=== PATIENT | male | born 1955 | race Caucasian/White ===

== ENCOUNTER 2024-07-11 14:43 | Inpatient (IN) | payer MEDICARE, OTHER, SELFPAY ==
[2024-07-11] VITALS (74 sets, daily range): BP systolic 77–203; BP diastolic 40–182; BMI 32.2; BMI 33.1
[2024-07-11 12:10] LABS: Glucose - Point of Care 366 mg/dl (70-99)
--- NOTE | 2024-07-11 12:40 | PHANOTE ---
Addendum entered by Alanis Saxena 07/11/24 14:01:
family in room, went to car to get medication list. unable to get ahold of patient family or cardiology office
Addendum entered by Alanis Saxena 07/11/24 14:00:
called patient physician group at [phone] but no answer
Original Note:
med rec padmini- patient has no ecw and no family a this time
[2024-07-11] MEDS: NSS 1000 IV ×2 (12:41→16:58)
[2024-07-11 12:56] LABS: HCO3 19.3 mmol/L (21-28); PCO2 45 mmHg (35-48); PO2 237 mmHg (83-108); pH 7.24 (7.35-7.45)
[2024-07-11] MEDS: ATIVAN 2 MG IV (13:10)
[2024-07-11 13:13] LABS: Hematocrit 45.2 % (39.0-52.0); Mean Corpuscular Hgb 28.9 pg (27.0-31.0); Mean Corpuscular Volume 93.2 fL (80.0-94.0); Mean Platelet Volume 10.2 fL (7.4-10.4); Platelet Count 284 10^3/uL (130-400); Red Blood Cell Count 4.85 10^6/uL (4.70-6.10); Red Cell Dist. Width 12.6 % (11.5-14.5); White Blood Cell Count 12.4 10^3/uL (4.8-10.8)
[2024-07-11 13:15] LABS: INR 1.14
[2024-07-11 13:16] LABS: APTT 31.1 Sec (23.4-35.0)
[2024-07-11 13:21] LABS: ALT (SGPT) 170 U/L (0-50); AST (SGOT) 181 U/L (17-59); Albumin 3.7 g/dl (3.5-5.0); Alkaline Phosphatase 79 U/L (38-126); Blood Urea Nitrogen 18 mg/dl (9-20); Calcium 8.3 mg/dl (8.4-10.2); Carbon Dioxide 18 mmol/L (22-30); Chloride 102 mmol/L (98-107); Glucose 317 mg/dl (70-99); Potassium 4.7 mmol/L (3.5-5.1); Sodium 137 mmol/L (135-145); Total Bilirubin 0.8 mg/dl (0.2-1.3); Total Protein 6.2 g/dl (6.3-8.2); Triglycerides 150 mg/dl (10-149); eGFR > 60.00
[2024-07-11 13:33] LABS: Troponin I 0.083 ng/ml
--- NOTE | 2024-07-11 13:38 | ED.GENMED ---
History of Present Illness
General
Chief Complaint: CODE
Source: family and ambulance crew
Exam Limitations: clinical condition
Nursing documentation reviewed up to this point in time: agreed with
History of Present Illness
History of Present Illness:
69-year-old male with a reported history of CAD status post stents and CHF with reduced ejection fraction of 25% who presents to the emergency room via EMS status post a cardiac arrest. Patient cannot meaningfully participate in history due to his
clinical condition. History was obtained from EMS initially then from his girlfriend/common-law , sister and his employer subsequently. According to EMS they were called for a cardiac arrest. On their arrival he was found down on a job site
and coworkers were doing CPR and had an AED in place. He apparently was shocked twice by the AED prior to EMS arrival. On their arrival he was still pulseless and EMS initiated ACLS protocols and gave him a dose of epi. Narrow complex PEA was
initial rhythm for EMS. After about 15 minutes of EMS CPR ROSC obtained. He had no shockable rhythm for EMS. He was transported to the hospital. There was a question of a fall associated with his rest�patient was apparently nearby a 2 to 3 foot
ladder but is unclear whether he fell off of the ladder.
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 His coworkers apparently witnessed him collapse and started CPR and AED and called EMS. According to his girlfriend
he has history of CAD and CHF with reduced EF. He is on multiple medications including Farxiga, Entresto, Coreg, Lasix. He follows with cardiology through [facility].
Past History
Past History
ED Past Medical History: None
ED Past Surgical History: None
Social History
Tobacco: Other (occasional cigar)
Alcohol: Occasional
Personal: Single
Living: with roommate
Employment: Employed
Review of Systems
Review of Systems
Unable to obtain full review of systems at this time due to: due to acuity
All Other Systems: Not applicable
Phy Exam
Physical Exam
Physical Exam:
General: Unconscious, spontaneously breathing
Head: Normocephalic, atraumatic
Eyes: Conjunctiva injected
Throat: LMA in place on arrival; intubated shortly after arrival
Neck: Cervical collar applied
Lungs: Bilateral breath sounds present with no focal rales appreciated
Heart: Heart rate in the 80s, pulses present throughout; no chest wall bruising or instability, no crepitus
Abd: Soft, non distended, no bruising
Back: No spinal step-offs or signs of trauma the back or flank
Neuro: No spontaneous movement but he is having spontaneous breaths; his pupils are fixed and dilated; rectal tone intact
Skin: Somewhat cool to the touch
Extremities: Atraumatic, no edema in extremities, equal pulses in all extremities
Scores
Heart Failure Risk
Heart Failure Risk Score: Not Applicable
Heart Score for Chest Pain Patients
STEMI patient?: Not applicable
Withdrawal Assessment of Alcohol
Withdrawal Assessment Completed?: Not applicable
Course
Orders/Labs/Results
Orders:
Orders
07/11/24 11:52
Portable Chest Xray [CR Chest Portable - 1 View] Urgent
Comment:
Reason For Exam: code
Reason Study Needs to be Portable: Patient Unstable
07/11/24 11:54
Electrocardiogram (*1) Urgent
Reason for Study: Chest Pain
EKG- Treatment ONCE
07/11/24 11:55
CT Cervical Spine W/ Iv Contra Urgent
Comment:
Reason For Exam: CODE
CT Head W/o Iv Contrast Urgent
Comment:
Reason For Exam: code
07/11/24 11:56
CT Chest/abd/pel W Iv Cont Urgent
Comment:
Reason For Exam: code
07/11/24 11:59
Type And Crossmatch [Type+Screen] Urgent
Alcohol Urgent
CBC/With Diff [Complete Blood Count/With Diff] Urgent
CMP [Comprehensive Metabolic Panel] Urgent
PTT Urgent
Prothrombin Time Urgent
Triglycerides Routine
Comment: baseline levels with propofol infusion
Troponin I Urgent
07/11/24 12:24
CT Cervical Spine W/o Iv Contr Urgent
Comment:
Reason For Exam: fall, cardiac arrest
07/11/24 12:25
0.9% Sodium Chloride 1000 ml [Nss] 1,000 ml IV BOLUS
Propofol 1,000,000 Mcg/100 ml [Diprivan] 1,000,000 mcg in 100 ml IV NOW
07/11/24 12:46
ABG [Arterial Blood Gas] Urgent
%Oxygen/Room Air: 100
Urinalysis Reflex To Culture Urgent
Date Specimen was Collected: 07/11/24
Time Specimen was Collected: 12:02
Urine Drug Abuse Screen Urgent
Date Specimen was Collected: 07/11/24
Time Specimen was Collected: 12:02
07/11/24 12:58
Electrocardiogram (*1) Urgent
Reason for Study: Abnormal EKG
EKG- Treatment ONCE
07/11/24 13:07
Lorazepam [Ativan] 2 mg .ROUTE .STK-MED ONE
07/11/24 13:09
Lorazepam [Ativan] 2 mg IV NOW STA
07/11/24 13:24
ABO2 Urgent
ZuldiK Wristband Number:
Associate notified that ABO2 has been ordered: [id number]
Date: 07/11/24
Time: 13:05
Pin Ticket Machine Operator ID: [id number]
07/11/24 13:38
Acetone [B-Hydroxybutyrate] Urgent
07/11/24 13:45
CARDIOLOGY CONSULT Stat
Consulting Provider: Vincent العراقي
Was physician already notified: Yes
07/11/24 13:46
Analytical Technician Consult Stat
Consulting Provider: Giselle,Luisa Mcintyre
Was physician already notified: Yes
Reason for consult: cardiac arrest
Abnormal Lab Results
07/11/24 07/11/24
11:59 12:46
WBC 12.4 H 10^3/uL
(4.8-10.8)
MCHC 31.0 L g/dL
(33.0-37.0)
PT 15.0 H Sec
(11.4-14.6)
pH 7.24 L
(7.35-7.45)
pO2 237 H mmHg
(83-108)
HCO3 19.3 L mmol/L
(21-28)
ABG O2 Sat (Measured) 100.0 H %
(94-98)
Carbon Dioxide 18 L mmol/L
(22-30)
Glucose 317 H mg/dl
(70-99)
Calcium 8.3 L mg/dl
(8.4-10.2)
AST 181 H U/L
(-59)
ALT 170 H U/L
(0-50)
Troponin I 0.083 H* ng/ml
Total Protein 6.2 L g/dl
(6.3-8.2)
Triglycerides 150 H mg/dl
(10-149)
POC Glucose 366 H mg/dl
(70-99)
07/11/24 11:59
07/11/24 11:59
Vital Signs
Initial and Last Documented VS:
Initial Vital Signs
Pulse Resp BP
90 18 133/84
07/11/24 11:57 07/11/24 11:57 07/11/24 11:57
Last Documented Vital Signs
Pulse Resp BP
97 17 126/64
07/11/24 13:10 07/11/24 13:10 07/11/24 13:10
Procedures
Intubations
Procedure completed by: Enrique Orellana MD
Method of Intubation: glidescope
Tube size (cm): 7.5
Placement confirmed by: placement corrected
Breath sounds after intubation: equal
Intubation complications: no complications
Central Line
Left Femoral:
Indication for procedure:: cardiac arrest, cooling
Procedure completed by: Enrique Orellana MD
If no, reason: Emergency procedure
Central line lumen: triple
Number of attempts: 1
Central line complications: none
Sterile dressing applied?: Yes
MDM/Problems Addressed
Differential Diagnosis Includes:
Differential diagnosis is wide and includes: Traumatic mechanism for arrest such as brain bleed, pneumothorax/hemothorax, intra-abdominal bleed, spinal cord injury //more likely suspect that this is cardiac arrest related to arrhythmia versus acute
CO; PE less likely as oxygenation has been acceptable and heart rate normal, must consider electrolyte derangements as well given he is on Lasix
MDM/Problems Addressed:
69-year-old male presents after sudden witnessed cardiac arrest; had CPR by bystanders immediately and then about 15 minutes of EMS CPR before ROSC. Was shocked twice by ED but not by medics. Here he is normotensive with heart rate in the 80s.
Rest of vitals and exam as above. Cervical collar applied on arrival. He was intubated shortly after arrival. Bilateral large-bore IVs placed. Labs including a CBC and a CMP, coags, type and screen, troponin, urinalysis, UDS and alcohol level
sent. EKG shows left bundle branch block unclear chronicity. No STEMI. Chest x-ray after intubation shows low-lying ET tube which was retracted after my initial review. Will send for a CT of the head, cervical spine, chest/abdomen/pelvis.
Provide fluids.
Patient biting ET tube will start propofol infusion.
CT of the head, cervical spine, chest/abdomen/pelvis shows minor nondisplaced sternal fracture likely from CPR but no other acute posttraumatic injuries or other acute pathology. His initial labs showed slight leukocytosis to 12.4. pH 7.24. CMP
shows metabolic acidosis anion gap 17 with hyperglycemia of 317�lower suspicion at this is DKA suspect much more likely that this is a postarrest lactic acidosis. Lactate and blood culture sent. His troponin was elevated but marginal at 0.083�will
need to trend. LFTs elevated likely in the setting of postarrest. Working diagnosis is arrhythmia genic arrest versus acute CO. Discussed with ICU will proceed with cooling�a central line was placed by me. Discussed with hospitalist to
facilitate admission.
Chronic conditions affecting care:
CAD, CHF
*Radiology
Radiology exam reviewed: preliminary read by ED provider and radiology read reviewed
*Pulse Oximetry
Patient hypoxic: no
*EKG
Interpreted by ED Provider?: Yes
Heart Rate: 89
Rate: normal
Rhythm: sinus and PVC's
[place]: normal axis
QRS Pattern: left bundle branch block
Ischemia: non-specific ST changes
*Critical Care Note
Total Time (30-74mins, 75-104mins- exclusive of procedures): 44
comment:
Critical care statement: A total of 44 minutes of critical care time was provided for this patient. This includes management of unstable vital signs, evaluation of the patient at bedside, frequent reassessment, discussion with
consultants/hospitalist, and review of pertinent medical records. This time was separate from time utilized to perform any aforementioned documented procedures
Data Reviewed
Source: records, family and ambulance crew
Patient Management
Discussion with other providers: Hospitalist (Discussed with hospitalist) and Atomic Process Engineer (Discussed with energy efficiency finance manager)
Escalation/DeEscalation of care consider admission/obs:
Admission indicated
ED Attending Note
-
Portions of this chart may have been created with voice recognition software.� Occasional wrong word or��sound alike� substitutions may have occurred due to the inherent limitations of voice recognition software.
Discharge Plan
Departure
Patient Disposition: Admit
Date of Disposition: 07/11/24
Time of Disposition: 13:37
Admit to doctor: Ector
Presentation/result/management discussed w/ accepting MD/DO: Hospitalist
Discharge Problem:
Cardiac arrest
Prescriptions:
No Action
furosemide [Lasix] 40 mg Tablet
40 mg PO DAILY
atorvastatin [Lipitor] 80 mg Tablet
80 mg PO DAILY
spironolactone 25 mg Tablet
12.5 mg PO DAILY
carvedilol [Coreg] 3.125 mg Tablet
3.125 mg PO BID
prasugrel HCl 10 mg Tablet
10 mg PO DAILY
dapagliflozin propanediol [Farxiga] 5 mg Tablet
5 mg PO DAILY
sacubitril-valsartan [Entresto] 24-26 mg Tablet
1 tab PO BID
Referrals:
UNKNOWN - PT NOT,INTERVIEWE [Family Provider] -
Interventions
Interventions:
*Risk Screen - Suicide Last Done: 07/11/24 11:57
*General Assessment Last Done: 07/11/24 11:57
*Neglect/Abuse Screening Last Done: 07/11/24 11:57
ED- Cardiac Assessment Last Done: 07/11/24 12:03
ED- Pulmonary Assessment Last Done: 07/11/24 12:03
Discharge Date and Time
Print Language: DANISH
[2024-07-11 13:44] LABS: Alcohol None Detected
[2024-07-11 13:47] LABS: Amphetamines Negative (Negative); Barbiturates Negative (Negative); Benzodiazepines Negative (Negative); Buprenorphine Negative (Negative); Cocaine Negative (Negative); Marijuana Negative (Negative); Methadone Negative (Negative); Methamphetamines Negative (Negative); Opiates Negative (Negative); Phencyclidine Negative (Negative); Tricyclic Antidepressants Negative (Negative)
--- NOTE | 2024-07-11 13:58 | W.PN.UPDATE ---
Update Note
Progress Note Update
I personally performed a history and physical exam of the patient and discussed management with the resident. I reviewed the resident's note and agree with the documented findings and plan of care HPI/CC.
69-year-old male presents after cardiac arrest. As per discussion with the ER the patient collapsed at his work. CPR was started immediately by coworkers. An AED was placed and he received 2 shocks. He received 1 round of CPR and epinephrine by
EMS and ROSC was obtained. Currently intubated.
Gen: NAD, well developed/nourished
Neck: C-collar in place
CV: RRR, +S1/S2, no m/r/g.
Resp: CTAB, no rales, wheezes, or rhonchi.
Abd: +BS, soft, NT, ND
Skin: No rashes.
Neuro: sedated
Psych: sedated
Lab Results
07/11/24 07/11/24
11:59 12:46
WBC 12.4 H
RBC 4.85
Hgb 14.0
Hct 45.2
MCV 93.2
MCH 28.9
MCHC 31.0 L
RDW 12.6
Plt Count 284
MPV 10.2
PT 15.0 H
INR 1.14
APTT 31.1
pH 7.24 L
pCO2 45
pO2 237 H
HCO3 19.3 L
Base Excess -8.0
ABG O2 Sat (Measured) 100.0 H
O2 Delivery Level
Sodium 137
Potassium 4.7
Chloride 102
Carbon Dioxide 18 L
BUN 18
Creatinine 1.1
eGFR > 60.00
Glucose 317 H
Calcium 8.3 L
Total Bilirubin 0.8
AST 181 H
ALT 170 H
Alkaline Phosphatase 79
Troponin I 0.083 H*
Total Protein 6.2 L
Albumin 3.7
Triglycerides 150 H
Urine Opiates Screen Negative
Ur Buprenorphine Negative
Ur Oxycodone Screen Negative
Urine Methadone Screen Negative
Ur Barbiturates Screen Negative
Ur Tricyclics Screen Negative
Ur Phencyclidine Scrn Negative
Ur Amphetamines Screen Negative
U Methamphetamines Scrn Negative
U Benzodiazepines Scrn Negative
Urine Cocaine Screen Negative
U Marijuana (THC) Screen Negative
Alcohol, Quantitative None detected
POC Glucose 366 H
CXR: No acute cardiopulmonary process. Low-lying ET tube. This was already retracted by the time of subsequent CT.
CT Brain/C-spine: No acute intracranial abnormality noted. No acute fracture or subluxation of the cervical spine.
CT C/A/P: No significant abnormality identified in the chest, abdomen or pelvis aside from a tiny nondisplaced fracture of the upper sternal body anteriorly. 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
cm. Possible left thyroid nodule. Consider outpatient workup with dedicated thyroid ultrasound if not previously performed.
ECG (read by me): SR @ 90, L-axis, LBBB
Cardiac arrest:
-Likely due to arrhythmogenic event due to underlying chronic HFrEF and CAD (h/o stents)
-trend trop, initial 0.083
-check echo (prior EF 25%, no ICD)
-post-cardiac arrest cooling protocol
-STAT cards/propagation worker c/s placed
-obtain records from [facility]
-will likely need [facility]
-GDMT: resume Coreg/Farxiga/Entresto/Aldactone once pt has enteral access
Total critical care time spent = 42 min
[2024-07-11 14:02] LABS: % Basophils 0.6 % (0-2); % Eosinophils 1.1 % (0-6); % Immature Granulocytes 5.4 % (0-0.5); % Lymphocytes 27.5 % (20.5-51.1); % Monocytes 4.3 % (1.7-9.3); % Neutrophils 61.1 % (42.2-75.2); Absolute Basophils 0.1 10^3/uL (0-0.2); Absolute Eosinophils 0.1 10^3/uL (0-0.7); Absolute Immature Granulocytes 0.7 10^3/uL (0-0.05); Absolute Lymphocytes 3.4 10^3/uL (1.2-3.4); Absolute Monocytes 0.5 10^3/uL (0.1-0.6); Absolute Neutrophils 7.6 10^3/uL (1.4-6.5); Nucleated Red Blood Cells % 0 % (-)
[2024-07-11 14:16] LABS: Urine Albumin 3+ (Neg - Trace); Urine Bilirubin Negative (Negative); Urine Character Slightly Cloudy (Clear); Urine Color Yellow; Urine Glucose 4+ (Negative); Urine Ketone Negative (Negative); Urine Leukocyte Negative (Negative); Urine Nitrite Negative (Negative); Urine Occult Blood 4+ (Negative); Urine Urobilinogen Negative (Neg - 1+)
[2024-07-11 14:26] LABS: Urine Granular Cast 0-2 /LPF (0)
[2024-07-11 14:28] LABS: Urine Bacteria Moderate (Negative); Urine Red Blood Cell 16-20 /HPF (0-2)
--- NOTE | 2024-07-11 14:46 | HPS.HSE ---
Family Physician
-
Family Physician: Jean Claude Madrigal DO
Chief Complaint
-
Cardiac arrest
History of Present Illness
69-year-old male with history of CAD status post stents in February 2023, CHF with reduced ejection fraction of 25% was brought in by EMS status postcardiac arrest. 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
started CPR, receiving 2 shocks from AED device prior to EMS arrival. EMS arrived and began 15 minutes of ACLS protocol, he was given epi, and had narrow complex PEA with subsequent ROSC. No shockable rhythm per EMS.
Per patient's partner, patient's had no improvement in ejection fraction after GDMT. Implanted defibrillator was recommended by his tapeman but patient declined at the time. He has been making food and lifestyle changes.
Medical History
Past Medical History
Past Medical History: Reports CAD and CHF (HFrEF 25%)
Past Surgical History: Reports Appendectomy and Other (Inguinal hernia repair, left clavicle ORIF, left index finger tendon repair)
Social History
Unable to obtain full social history at this time due to: Patient Intubation
Tobacco: Smoker (Occasional)
Alcohol: Occasional
Personal: Single (Has common-law )
Living: With Family
Employment: Employed
Family History
Family History: Not pertinent
Allergies / Home Medications
Allergies reflects when Allergies were last updated in [employer].
Home Medications with original date entered in [employer]
Allergy/Medication List:
Allergies
Allergy/AdvReac Type Severity Reaction Status Date / Time
No Known Allergies Allergy Verified 12/01/19 11:09
Home Medications
aspirin 81 mg chewable tablet 81 mg PO DAILY 07/11/24
atorvastatin 80 mg tablet (Lipitor) 80 mg PO QPM 07/11/24
carvedilol 3.125 mg tablet (Coreg) 3.125 mg PO BID 07/11/24
dapagliflozin propanediol 5 mg tablet (Farxiga) 5 mg PO QPM 07/11/24
furosemide 40 mg tablet (Lasix) 40 mg PO DAILY 07/11/24
prasugrel HCl 10 mg tablet 10 mg PO DAILY 07/11/24
sacubitril 24 mg-valsartan 26 mg tablet (Entresto) 1 tab PO BID 07/11/24
spironolactone 25 mg tablet 12.5 mg PO DAILY 07/11/24
Review of Systems
-
Unable to obtain full review of systems at this time due to: Acuity
Physical Exam
Vital Signs
Vital Signs
Pulse Resp BP
82 25 142/83
07/11/24 14:30 07/11/24 14:30 07/11/24 14:25
Physical Exam
General: Well Nourished and Intubated
HEENT: NormoCephalic and Atraumatic
Respiratory: Clear; No Wheezes, Rales, Rhonchi or Crackles
Cardiac: S1/S2 and Regular Rhythm; No Murmur, Rub, Gallop or Peripheral Edema
GI: Soft, Non Distended and Normal Bowel Sounds
Skin: Warm and Dry
Neuro: Sedated
Laboratory Results
-
07/11/24 11:59
07/11/24 11:59
Laboratory Results
PT 15.0 Sec (11.4-14.6) H 07/11/24 11:59
INR 1.14 07/11/24 11:59
APTT 31.1 Sec (23.4-35.0) 07/11/24 11:59
pH 7.24 (7.35-7.45) L 07/11/24 12:46
pCO2 45 mmHg (35-48) 07/11/24 12:46
pO2 237 mmHg (83-108) H 07/11/24 12:46
HCO3 19.3 mmol/L (21-28) L 07/11/24 12:46
Total Bilirubin 0.8 mg/dl (0.2-1.3) 07/11/24 11:59
AST 181 U/L (17-59) H 07/11/24 11:59
ALT 170 U/L (0-50) H 07/11/24 11:59
Alkaline Phosphatase 79 U/L (38-126) 07/11/24 11:59
Troponin I 0.083 ng/ml H* 07/11/24 11:59
Impression/Plan
-
IMPRESSION: 69-year-old male with history of CAD status post stents February 2023, HFrEF EF 25%, who presents with cardiac arrest
PLAN:
Cardiac arrest:
-Likely due to arrhythmogenic event due to underlying chronic HFrEF and CAD (h/o stents Feb 2023)
-CT chest/abd/pelvis no acute significant abnormality
-CT head and c-spine - no acute abnormality
-Admit to ICU
-trend trop, initial 0.083
-check echo (prior EF 25%, no ICD - pt declined at the time)
-post-cardiac arrest cooling protocol
-STAT cards/caravan park and camping ground manager c/s placed
-obtain records from [facility]
-will likely need [facility]
HFrEF:
-GDMT: resume Coreg/Farxiga/Entresto/Aldactone once pt has enteral access
Incidental findings on CT:
-Possible left thyroid nodule. Consider outpt workup after acute problems addressed
-Mild fusiform aneurysmal dilatation of the ascending thoracic aorta measuring up to 4.2 cm. Vascular assessment after acute problems/outpt
Code Status: DNR
POA: Madhavi Zamora (common law ) [phone]
--- NOTE | 2024-07-11 14:53 | CON.CAR ---
Addendum entered and electronically signed by Vincent العراقي MD 07/11/24 15:28:
I saw and examined the patient.
The STATE PATROL OFFICER's note was reviewed and I agree with the note.
Comment: 69 year old male (known to his proof inspector at [facility]) with coronary artery disease (most recent PCI 02/2023), HFrEF (EF 25%, presumed ischemic cardiomyopathy), LBBB, hypertension, and dyslipidemia, presented to the emergency room
status postcardiac arrest.
- supportive care for now
- echo pending
- heart cath and possible defibrillator later this hospitalization
Original Note:
Consultation
Consultation Request
Date/Time Consultation Requested: 07/11/2024 13:45
Date/Time Consultation Performed: 07/11/2024 14:00
Requesting Provider: Dr. Garcia
Performing Provider: BLANCA Gomez for Dr. العراقي
Reason for Consultation: Cardiac arrest
Medical History
-
Chief Complaint: Cardiac arrest
History of Present Illness:
Aj Shelton is a 69 year old male (known to his proof inspector at [facility]) with coronary artery disease (most recent PCI 02/2023), HFrEF (EF 25%, presumed ischemic cardiomyopathy), LBBB, hypertension, and dyslipidemia, presented to the emergency
room status postcardiac arrest. He was found down on a job site. Coworker started doing CPR. He was shocked twice by the AED prior to EMS arrival. When EMS arrived, he was pulseless with narrow complex PEA. ACLS protocol initiated. Epinephrine
was given. ROSC obtained after 15 minutes of high-quality CPR. There is a question of a fall associated. There was a 3 foot ladder nearby. Cardiology was STAT consulted for concerns regarding arrhythmia. Telemetry stable. Mr. Shelton is intubated
on mechanical ventilation. The plan of care was discussed with his girlfriend at the bedside. Per his girlfriend, he was his usual state of health this morning. He was even discussing going to the gym to workout. Yesterday, he complained of
joint pain and took Tylenol arthritis.
Past Medical History
Past Medical History: CAD, CHF, HTN, Hypercholesterolemia and Other (LBBB)
Past Surgical History: Orthopedic
Social History
Tobacco: Non-Smoker
Alcohol: Occasional
Drug: None
Personal: Single (Girlfriend)
Living: With Family
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
Family History
Family History: Reviewed & Not Pertinent (GF denies known early CAD and SCD.)
Allergies / Home Medications
Allergy/AdvReac Type Severity Reaction Status Date / Time
No Known Allergies Allergy Verified 12/01/19 11:09
�Medication �Instructions �Recorded �Confirmed �Type
aspirin 81 mg chewable tablet 81 mg PO DAILY 07/11/24 07/11/24 History
atorvastatin 80 mg tablet (Lipitor) 80 mg PO QPM 07/11/24 07/11/24 History
carvedilol 3.125 mg tablet (Coreg) 3.125 mg PO BID 07/11/24 07/11/24 History
dapagliflozin propanediol 5 mg 5 mg PO QPM 07/11/24 07/11/24 History
tablet (Farxiga)
furosemide 40 mg tablet (Lasix) 40 mg PO DAILY 07/11/24 07/11/24 History
prasugrel HCl 10 mg tablet 10 mg PO DAILY 07/11/24 07/11/24 History
sacubitril 24 mg-valsartan 26 mg 1 tab PO BID 07/11/24 07/11/24 History
tablet (Entresto)
spironolactone 25 mg tablet 12.5 mg PO DAILY 07/11/24 07/11/24 History
Review of Systems
-
Unable to obtain full review of systems at this time due to: Patient Intubation
Physical Exam
Vital Signs
Pulse Resp BP
82 25 142/83
07/11/24 14:30 07/11/24 14:30 07/11/24 14:25
Lab Results
07/11/24 11:59
07/11/24 11:59
Troponin I 0.083 ng/ml H* 07/11/24 11:59
Physical Exam
General: Well Developed, Well Nourished and Intubated
HEENT: Normocephalic, Anicteric, Moist Mucous Membranes and Other (C collar)
Respiratory: Clear
Cardiac: S1/S2 and Regular Rhythm; Negative Peripheral Edema
Breast: Deferred by me
GI: Soft, Non Tender, Non Distended and Normal Bowel Sounds
Rectal: Deferred by Provider
Genito-urinary: No Costovertebral Tender
Musculoskeletal: No Clubbing, No Cyanosis and No Edema
Skin: Warm and Dry
Neuro: AO x 3
Hematologic/Lymphatic: No Lymphadenopathy
Psych: Calm
Impression / Plan
-
IMPRESSION/PLAN: 69M with coronary artery disease (most recent PCI 02/2023), HFrEF (EF 25%, presumed ischemic cardiomyopathy), LBBB, hypertension, dyslipidemia, and [id number] diabetes mellitus presented to the emergency room status
postcardiac arrest.
Primary proof inspector: [facility]
Cardiac arrest
-Cause currently unknown, critically ill - intubated and sedated
-Cooling per Buzzle Buffer
-Follow telemetry
-He declined ICD in the outpatient setting twice per girlfriend
-[facility] this admission
-Obtain TTE
Abnormal troponin, type unknown, likely nonischemic myocardial injury in the setting of defibrillation shocks and CPR
-Trend to peak
-EKG with LBBB
CAD
-On aspirin and prasugrel
-PCI 02/2023, location unknown, records requested
-Continue medical therapy
HFrEF (EF 25%), chronic
Presumed ICMO
-Per girlfriend, LVEF 25%
-GDMT as tolerated
-He does not appear grossly volume overloaded
-Trend daily weight, I's/O, and BMP
Hyperglycemia, HgbA1c pending
HLD, on atorvastatin
LBBB, chronicity unknown
Data Reviewed
-
EKG: Report Reviewed by me
Labs: Labs Reviewed by me
Old Records: Requested
--- NOTE | 2024-07-11 15:03 | W.PN.UPDATE ---
Update Note
Progress Note Update
Pt see's BLANCA Vazquez at [facility] in [place], [place]. [phone]. I left a message for Kwesi to call me.
--- NOTE | 2024-07-11 15:35 | CON.INTV ---
Consultation
Consultation Request
Date/Time Consultation Requested: 07/11/24
Date/Time Consultation Performed: 07/11/24
Performing Provider: Giselle
Reason for Consultation: ICU
Medical History
-
History of Present Illness:
Patient is a 69-year-old male with previous history of CAD, heart failure with known EF of 25%, presenting to ER via EMS status post cardiac arrest. 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 He had
received 2 shocks from an AED device prior to EMS arrival. He was continued on resuscitation by EMS, given epinephrine. Was noted to be in PEA arrest, with subsequent ROSC. He was recommended by his outpatient dragger to implant a
defibrillator but had declined. Current mental status appears depressed, not following commands. There was noted myoclonic jerks, patient remained unresponsive. Decision made for hypothermia protocol initiation. He is admitted to ICU for further
management.
Past Medical History
Past Medical History: Other (see list below)
Social History
Tobacco: Non-smoker
Alcohol: None
Drug: None
Family History
Family History: Reviewed & Not Pertinent
Allergies / Home Medications
Allergies
Allergy/AdvReac Type Severity Reaction Status Date / Time
No Known Allergies Allergy Verified 12/01/19 11:09
Home Medications
�Medication �Instructions �Recorded �Confirmed �Last Taken �Type
aspirin 81 mg chewable tablet 81 mg PO DAILY 07/11/24 07/11/24 07/11/24 History
atorvastatin 80 mg tablet (Lipitor) 80 mg PO QPM 07/11/24 07/11/24 Unknown History
carvedilol 3.125 mg tablet (Coreg) 3.125 mg PO BID 07/11/24 07/11/24 07/11/24 History
dapagliflozin propanediol 5 mg 5 mg PO QPM 07/11/24 07/11/24 Unknown History
tablet (Farxiga)
furosemide 40 mg tablet (Lasix) 40 mg PO DAILY 07/11/24 07/11/24 07/11/24 History
prasugrel HCl 10 mg tablet 10 mg PO DAILY 07/11/24 07/11/24 07/11/24 History
sacubitril 24 mg-valsartan 26 mg 1 tab PO BID 07/11/24 07/11/24 Unknown History
tablet (Entresto)
spironolactone 25 mg tablet 12.5 mg PO DAILY 07/11/24 07/11/24 07/11/24 History
Review of Systems
-
Unable to Obtain full review of systems at this time due to: Patient Intubation
Vitals / Labs / Diagnostic Testing
Vital Signs
Pulse Resp BP Pulse Ox
93 16 146/96 99
07/11/24 15:15 07/11/24 15:15 07/11/24 15:15 07/11/24 15:15
Lab Data
07/11/24 11:59
07/11/24 11:59
Laboratory Results
07/11/24 07/11/24
11:59 12:46
PT 15.0 H
INR 1.14
APTT 31.1
pH 7.24 L
pCO2 45
pO2 237 H
HCO3 19.3 L
O2 Delivery Level
Diagnostic Testing:
Physical Exam
-
HEENT: Normocephalic, Anicteric and Moist Mucous Membranes
Cardiovascular: S1/S2 and Regular Rhythm
Respiratory: Clear, Non-Labored Respirations and Other (ETT)
GI: Soft, Non Distended and Non Tender
Neurology: Tremors (myoclonus noted, posturing) and Other (unresponsive)
Skin: Warm and Dry
General: Comfortable and Other (NAD, intubated)
Assessment
-
Patient is a 69-year-old male with previous history of CAD, heart failure with known EF of 25%, presenting to ER via EMS status post cardiac arrest. 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 He had
received 2 shocks from an AED device prior to EMS arrival. He was continued on resuscitation by EMS, given epinephrine. Was noted to be in PEA arrest, with subsequent ROSC. He was recommended by his outpatient dragger to implant a
defibrillator but had declined. Current mental status appears depressed, not following commands. There was noted myoclonic jerks, patient remained unresponsive. Decision made for hypothermia protocol initiation. He is admitted to ICU for further
management.
Acute cardiac arrest s/p bystander CPR 07/11/24
VF presumed s/p 2 shocks, decompensated to PEA s/p CPR/Epi, with ROSC
Unresponsive s/p intubation and MV
Anoxia suspected given myoclonus/posturing
s/p TTM 07/11/24
Leukocytosis
Metabolic acidosis
Hyperglycemia
Transaminitis, mild
Elevated troponin, mild
Fell from ladder, small sternal fracture--06/26 fall vs CPR
Conditions present prior to admission
CAD s/p PCI 02/2023
CHF (HFrEF 25%), declined ICD placement
Appendectomy
Inguinal hernia repair
left clavicle ORIF
left index finger tendon repair
Right index finger amputation
Plan
Current mental status unresponsive status post TTM, initiated 07/11/2024
Had witnessed myoclonus and posturing prior to TTM initiation
Neuro consult for prognosis post TTM
Pain/sedation: As needed per protocol
RASS goals: -4
Status post cardiac arrest, presumed VT initially requiring 2 shocks
Eventually decompensated to PEA arrest, CPR and epi given with ROSC
Has a history of ischemic cardiomyopathy, EF 25%--noted to have declined ICD placement as outpatient
Hemodynamically stable, not requiring pressors.
Cardiology consult obtained
Repeat echo demonstrating persistent low EF
Intubated and on mechanical ventilation
Vent setting reviewed: AC 500/16/40/5+
Prior history of lung disease: None known
Supplemental O2 as indicated to maintain sats > 89%
CXR/CT reviewed indicating NAD/small sternal fracture from fall vs CPR
NPO, resume diet when able
Papier Mache Molder recommendations
Aspiration precautions, HOB > 30 degrees
Speech therapy eval can be considered if extubated
GI prophylaxis
Creat at baseline, no history of renal disease
Void trials
Follow urine output, critical I/Os
Replete electrolytes as needed
No signs/symptoms suspicious for infectious etiology at this time
Observe off antibiotics for now
Follow fever trend, WBC count
CBC stable, no signs of bleeding or coagulopathy.
DVT prophylaxis as assessed based on risk, including mechanical SCDs
Can transfuse if indicated for Hb <7, plt < 10
No prior h/o diabetes or thyroid disease
Hyperglycemia noted, likely undiagnosed DM
Insulin protocol started
HbA1c pending
Diagnostic Data
Chest X-Ray: 07/11/24- No acute cardiopulmonary process. Low-lying ET tube. This was already retracted by the time of subsequent CT.
CT Scan: CAP 07/11/24- 1. No significant abnormality identified in the chest, abdomen or pelvis, as described above.
2. 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
3. Possible left thyroid nodule. Consider outpatient workup with dedicated thyroid ultrasound if not previously performed.
There is a tiny nondisplaced fracture of the upper sternal body anteriorly.
HCT 07/11/24- 1. No acute intracranial abnormality noted.
2. No acute fracture or subluxation of the cervical spine.
Echo: 07/11/24- Moderately dilated LV with severely reduced systolic function. LVEF is 15-20% by visual estimation. Global hypokinesis. Normal right ventricular size and function. Limited valvular interrogation. No prior study available for
comparison.
PFT's:
Reports and relevant images were personally reviewed.
Critical Care time 77 mins -- The patient is admitted for acute critical illness for the treatment of vital organ failure and/or prevention of further life-threatening conditions. Total care includes time spent in review of history, physical exam,
medications, hemodynamic/ventilator parameters, laboratory data, imaging and discussion with house staff, pharmacy, respiratory therapy, deputy fire marshal, and nursing.
--- NOTE | 2024-07-11 15:51 | PTCARENOTE ---
Pt admitted to ICU bed 3361 from ED. Pt intubated on Propofol at 5 mcg/kg/min. No purposeful movements. Myoclonic twitching noted.
Green/bile noted from mouth. NGT placed to suction. Bleeding from nose noted after placement.
Sinus rhythm with frequent PVCs and BBB.
Hendrix draining yellow. + BM.
CHG bath given. TTM pads placed and cooling started.
--- NOTE | 2024-07-11 15:58 | CARDSERVLU ---
Echocardiogram with [facility] completed after protocol screening completed. Allergies verified.
Patent IV site: _Rt AC____
IV site flushed with 0.9% NaCl pre and post administration.
Diluted bolus method utilized to enhance visualization of ventricular mckeon.
Total volume given: _6.0_ mL
Patient tolerated all procedures well without complications.
[2024-07-11 16:23] LABS: TSH Reflex To Free T4 7.48 uIU/ml (0.47-4.68)
[2024-07-11 16:52] LABS: Free T4 0.77 ng/dl (0.78-2.19)
[2024-07-11] MEDS: NOVOLIN R 4 UNITS IV (17:03)
[2024-07-11] MEDS: NOVOLIN R INSULIN INFUSION 100 IV (17:05)
[2024-07-11] MEDS: PROTONIX IV 40 MG IV (17:09)
[2024-07-11] MEDS: LOVENOX 40 MG SC (17:10)
[2024-07-11] MEDS: BUSPAR 30 MG TUBE ×2 (17:10→23:45)
[2024-07-11] MEDS: TYLENOL ORAL SOLUTION 650 MG TUBE ×2 (17:10→23:44)
[2024-07-11] MEDS: NSS (PRESERVATIVE FREE) 10 ML IV (17:10)
[2024-07-11 17:17] LABS: Hematocrit 45.3 % (39.0-52.0); Hemoglobin 14.8 g/dL (13.0-18.0); Mean Corp Hgb Conc. 32.7 g/dL (33.0-37.0); Mean Corpuscular Hgb 29.2 pg (27.0-31.0); Mean Corpuscular Volume 89.3 fL (80.0-94.0); Red Blood Cell Count 5.07 10^6/uL (4.70-6.10); Red Cell Dist. Width 12.8 % (11.5-14.5); White Blood Cell Count 21.2 10^3/uL (4.8-10.8)
[2024-07-11 17:18] LABS: Mean Platelet Volume 9.7 fL (7.4-10.4); Platelet Count 301 10^3/uL (130-400)
[2024-07-11 17:22] LABS: Glucose - Point of Care 203 mg/dl (70-99)
[2024-07-11] MEDS: SUBLIMAZE 50 MCG IV ×3 (17:24→21:00)
[2024-07-11 17:29] LABS: Lactic Acid 2.9 mmol/L (0.7-2.0)
--- NOTE | 2024-07-11 17:35 | PTCARENOTE ---
Myoclonic twitching increased with stimulation causing vent alarms/dyssynchrony, biting ETT, and difficulty getting accurate BPs. Propfol increased and fentanyl bolus given.
Insulin gtt started per glycemic protocol.
[2024-07-11 17:38] LABS: ALT (SGPT) 207 U/L (0-50); AST (SGOT) 244 U/L (17-59); Albumin 3.8 g/dl (3.5-5.0); Alkaline Phosphatase 88 U/L (38-126); Blood Urea Nitrogen 28 mg/dl (9-20); Calcium 8.3 mg/dl (8.4-10.2); Carbon Dioxide 23 mmol/L (22-30); Chloride 107 mmol/L (98-107); Creatine Phosphokinase 857 U/L (55-170); Estimated Creatinine Clearance 68 ml/min; Glucose 217 mg/dl (70-99); Sodium 139 mmol/L (135-145); Total Bilirubin 0.6 mg/dl (0.2-1.3); Total CK 857 U/L (55-170); Total Protein 6.6 g/dl (6.3-8.2); Triglycerides 186 mg/dl (10-149); eGFR 55.09
[2024-07-11 17:57] LABS: B-Hydroxybutyrate 0.12 mmol/L (0.02-0.27)
[2024-07-11 17:59] LABS: CKMB 91.3 ng/ml (0.0-3.4)
[2024-07-11 18:23] LABS: Glucose - Point of Care 139 mg/dl (70-99)
--- NOTE | 2024-07-11 18:42 | PTCARENOTE ---
Troponin 10.2 - Dr العراقي notified. No new orders at this time.
[2024-07-11] MEDS: SUBLIMAZE 100 IV (19:03)
[2024-07-11 19:20] LABS: Glucose - Point of Care 142 mg/dl (70-99)
--- NOTE | 2024-07-11 19:30 | PTCARENOTE ---
Addendum entered by Eitan Chu RN 07/12/24 07:30:
Pt also received on TTM with cooling pads in place. Currently in cooling/hypothermic phase.
Original Note:
Resumed care of pt this evening. Received pt intubated and sedated on prop/fent gtts., infusing via left triple lumen femoral central line. Pt also on insulin gtt. under critical glycemic protocol. Pt's pupils are equal and sluggish in response to
light. Corneal and gag reflex are absent. Pt appears to be making decerebrate posturing motion w/ frequent myoclonic jerking. Pt does not appear to make any purposeful movement. Pt is in NSR w/ BBB and PVCs. Pt's apical is distant on auscultation.
Pt has no edema and palpable pedal pulses. Pt has a 7.5 ETT 23 at the right lip. Pt tolerating vent settings satting at 98% pulse ox. On auscultation pt lungs sound diminished and rhonchorous TO. Pt suctioned for thick maroon colored secretions. Pt
has [place] sump NG tube that is connected to low intermittent suctioning, drainage is brown/maroon in color. Pt's abdomen is round obese and has hypoactive BS. Hendrix cath in place draining yellow colored urine. Skin is C/D/I.
[2024-07-11 19:52] LABS: Prealbumin (Transthyretin) 22.8 mg/dl (17.6-36.0)
[2024-07-11 20:21] LABS: Glucose - Point of Care 158 mg/dl (70-99)
[2024-07-11 20:35] LABS: NT-proBNP 2300 pg/ml
[2024-07-11] MEDS: REFRESH CELLUVISC GEL 1 DROPS OPHTH (21:00)
--- NOTE | 2024-07-11 21:03 | W.PN.UPDATE ---
Update Note
Progress Note Update
Procedure Note: Arterial Line�
� Right Wrist Arrow 20 (07/26)�
Diagnosis:��PEA arrest?TTM
IV Line Comments: Uneventful Procedure�
Sunday's test completed pre-procedure: Yes�
A-Line Comments: Sterile technique as per standard protocol, Ultrasound guided insertion�
Functioning A-line in situ: Yes�
A-line Insertion Start Time:�2029�
A-line in at:��2034
[2024-07-11 21:25] LABS: Glucose - Point of Care 131 mg/dl (70-99)
[2024-07-11] MEDS: KEPPRA 2000 MG IV (21:28)
[2024-07-11 22:16] LABS: B.E. -5.8 mmol/L; HCO3 20.7 mmol/L (21-28); PCO2 43 mmHg (35-48); PO2 200 mmHg (83-108); pH 7.29 (7.35-7.45)
[2024-07-11 22:18] LABS: % Basophils 0.2 % (0-2); % Immature Granulocytes 0.7 % (0-0.5); % Lymphocytes 3.5 % (20.5-51.1); % Monocytes 5.7 % (1.7-9.3); % Neutrophils 89.9 % (42.2-75.2); Absolute Immature Granulocytes 0.1 10^3/uL (0-0.05); Absolute Lymphocytes 0.6 10^3/uL (1.2-3.4); Absolute Neutrophils 15.9 10^3/uL (1.4-6.5); Hematocrit 44.3 % (39.0-52.0); Hemoglobin 14.2 g/dL (13.0-18.0); Mean Corp Hgb Conc. 32.1 g/dL (33.0-37.0); Mean Corpuscular Hgb 28.6 pg (27.0-31.0); Mean Corpuscular Volume 89.1 fL (80.0-94.0); Mean Platelet Volume 9.6 fL (7.4-10.4); Nucleated Red Blood Cells % 0 % (-); Platelet Count 267 10^3/uL (130-400); Red Blood Cell Count 4.97 10^6/uL (4.70-6.10); Red Cell Dist. Width 12.8 % (11.5-14.5); White Blood Cell Count 17.6 10^3/uL (4.8-10.8)
[2024-07-11 22:28] LABS: Lactic Acid 2.6 mmol/L (0.7-2.0)
[2024-07-11] MEDS: DIPRIVAN 100 IV (22:43)
[2024-07-11 22:57] LABS: ALT (SGPT) 181 U/L (0-50); AST (SGOT) 241 U/L (17-59); Albumin 3.5 g/dl (3.5-5.0); Alkaline Phosphatase 71 U/L (38-126); Blood Urea Nitrogen 33 mg/dl (9-20); Calcium 8.2 mg/dl (8.4-10.2); Carbon Dioxide 20 mmol/L (22-30); Chloride 109 mmol/L (98-107); Creatine Phosphokinase 1327 U/L (55-170); Estimated Creatinine Clearance 86 ml/min; Glucose 157 mg/dl (70-99); Phosphorus 3.8 mg/dl (2.5-4.5); Potassium 4.2 mmol/L (3.5-5.1); Sodium 137 mmol/L (135-145); Total Bilirubin 0.6 mg/dl (0.2-1.3); Total CK 1327 U/L (55-170); Total Protein 6.2 g/dl (6.3-8.2); eGFR > 60.00
[2024-07-11 23:23] LABS: Glucose - Point of Care 125 mg/dl (70-99)
[2024-07-12] VITALS (16 sets, daily range): BP systolic 82–135; BP diastolic 33–83; BMI 32.5
--- NOTE | 2024-07-12 01:00 | PTCARENOTE ---
Pt reached goal temp of 91.4 degrees C. at approx. 0030.
[2024-07-12 01:23] LABS: Glucose - Point of Care 136 mg/dl (70-99)
[2024-07-12 02:18] LABS: Glucose - Point of Care 140 mg/dl (70-99)
[2024-07-12] MEDS: DIPRIVAN 100 IV ×6 (03:05→21:20)
[2024-07-12 03:20] LABS: Glucose - Point of Care 112 mg/dl (70-99)
[2024-07-12 04:20] LABS: % Basophils 0.1 % (0-2); % Immature Granulocytes 0.5 % (0-0.5); % Lymphocytes 5.2 % (20.5-51.1); % Monocytes 6.9 % (1.7-9.3); % Neutrophils 87.3 % (42.2-75.2); Absolute Immature Granulocytes 0.1 10^3/uL (0-0.05); Absolute Lymphocytes 0.8 10^3/uL (1.2-3.4); Absolute Neutrophils 13.2 10^3/uL (1.4-6.5); Hematocrit 42.6 % (39.0-52.0); Mean Corp Hgb Conc. 32.9 g/dL (33.0-37.0); Mean Corpuscular Hgb 29.2 pg (27.0-31.0); Mean Corpuscular Volume 88.9 fL (80.0-94.0); Mean Platelet Volume 9.9 fL (7.4-10.4); Nucleated Red Blood Cells % 0 % (-); Platelet Count 251 10^3/uL (130-400); Red Blood Cell Count 4.79 10^6/uL (4.70-6.10); Red Cell Dist. Width 12.8 % (11.5-14.5); White Blood Cell Count 15.1 10^3/uL (4.8-10.8)
[2024-07-12 04:24] LABS: Glucose - Point of Care 144 mg/dl (70-99)
[2024-07-12 04:26] LABS: INR 1.09; PT 14.4 Sec (11.4-14.6)
[2024-07-12 04:27] LABS: APTT 30.1 Sec (23.4-35.0)
[2024-07-12 04:46] LABS: Lactic Acid 2.7 mmol/L (0.7-2.0)
[2024-07-12 04:47] LABS: ALT (SGPT) 167 U/L (0-50); AST (SGOT) 220 U/L (17-59); Albumin 3.6 g/dl (3.5-5.0); Alkaline Phosphatase 70 U/L (38-126); Blood Urea Nitrogen 35 mg/dl (9-20); Calcium 8.4 mg/dl (8.4-10.2); Carbon Dioxide 18 mmol/L (22-30); Chloride 109 mmol/L (98-107); Estimated Creatinine Clearance 94 ml/min; Glucose 113 mg/dl (70-99); HDL Cholesterol 37 mg/dl; LDL Cholesterol, Calculated 31 mg/dl; Sodium 139 mmol/L (135-145); Total Bilirubin 0.7 mg/dl (0.2-1.3); Total Cholesterol 105 mg/dl (50-199); Total Protein 6.2 g/dl (6.3-8.2); Triglyceride 186 mg/dl (10-149); Very Low Density Lipoprotein 37 mg/dl (0-30); eGFR > 60.00
[2024-07-12 04:51] LABS: ALT (SGPT) 164 U/L (0-50); AST (SGOT) 224 U/L (17-59); Albumin 3.3 g/dl (3.5-5.0); Alkaline Phosphatase 71 U/L (38-126); Blood Urea Nitrogen 34 mg/dl (9-20); Calcium 8.3 mg/dl (8.4-10.2); Carbon Dioxide 19 mmol/L (22-30); Chloride 110 mmol/L (98-107); Estimated Creatinine Clearance 94 ml/min; Glucose 115 mg/dl (70-99); Phosphorus 3.6 mg/dl (2.5-4.5); Sodium 140 mmol/L (135-145); Total Bilirubin 0.5 mg/dl (0.2-1.3); Total CK 1395 U/L (55-170); eGFR > 60.00
[2024-07-12 04:55] LABS: Prealbumin (Transthyretin) 21.7 mg/dl (17.6-36.0)
[2024-07-12] MEDS: SUBLIMAZE 50 MCG IV ×4 (05:16→17:30)
[2024-07-12] MEDS: TYLENOL ORAL SOLUTION 650 MG TUBE ×3 (05:17→17:15)
[2024-07-12 05:22] LABS: Glucose - Point of Care 112 mg/dl (70-99)
[2024-07-12] MEDS: VERSED 2 MG IV ×2 (05:33→20:29)
[2024-07-12] MEDS: LEVOPHED 250 IV ×2 (06:08→21:20)
--- NOTE | 2024-07-12 06:10 | PTCARENOTE ---
Levo gtt initiated per protocol.
--- NOTE | 2024-07-12 07:00 | PTCARENOTE ---
Assumed care of patient. Pt rec' sedated and intubated. Safe environment confirmed. Hand off validation done on all gtts.
--- NOTE | 2024-07-12 07:14 | W.PN.INTV ---
Today's Communication / Plan
Recommendations
TTM ongoing, increased sedation for difficulty in cooling, rewarm this evening at midnight
Myoclonus increasing in frequency, neuro following for prognosis
Vent changes at bedside today, repeat ABG to evaluate changes
Evaluate again in next 24 hours
Assessment
-
Patient is a 69-year-old male with previous history of CAD, heart failure with known EF of 25%, presenting to ER via EMS status post cardiac arrest. 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 He had
received 2 shocks from an AED device prior to EMS arrival. He was continued on resuscitation by EMS, given epinephrine. Was noted to be in PEA arrest, with subsequent ROSC. He was recommended by his outpatient direct selling counselor to implant a
defibrillator but had declined. Current mental status appears depressed, not following commands. There was noted myoclonic jerks, patient remained unresponsive. Decision made for hypothermia protocol initiation. He is admitted to ICU for further
management.
Acute cardiac arrest s/p bystander CPR 07/11/24
VF presumed s/p 2 shocks, decompensated to PEA s/p CPR/Epi, with ROSC
Unresponsive s/p intubation and MV
Anoxia suspected given myoclonus/posturing
s/p TTM 07/11/24
Leukocytosis
Metabolic acidosis
Hyperglycemia
Transaminitis, mild
Elevated troponin, mild
Fell from ladder, small sternal fracture--2/ fall vs CPR
Conditions present prior to admission
CAD s/p PCI 02/2023
CHF (HFrEF 25%), declined ICD placement
Appendectomy
Inguinal hernia repair
left clavicle ORIF
left index finger tendon repair
Right index finger amputation
Plan
Current mental status unresponsive status post TTM, initiated 07/11/2024
Had witnessed myoclonus and posturing prior to TTM initiation--this has increased in frequency
Neuro consult for prognosis post TTM
Pain/sedation: As needed per protocol
RASS goals: -4
Status post cardiac arrest, presumed VT initially requiring 2 shocks--may have had prolonged downtime
Eventually decompensated to PEA arrest, CPR and epi given with ROSC
Has a history of ischemic cardiomyopathy, EF 25%--noted to have declined ICD placement as outpatient
Hemodynamically stable, pressors for BP support likely due to cooling/sedation
Cardiology consult obtained
Repeat echo demonstrating persistent low EF
Intubated and on mechanical ventilation
Vent setting reviewed: AC 500/ -- reviewed vent changes at bedside wtih RT given erratic RR and breathing pattern
Change to SIMV PS 10, RR 10--check ABG
Prior history of lung disease: None known
Supplemental O2 as indicated to maintain sats > 89%
CXR/CT reviewed indicating NAD/small sternal fracture from fall vs CPR
NPO, resume diet when able
Barrel Drum Cutter recommendations
Aspiration precautions, HOB > 30 degrees
Speech therapy eval can be considered if extubated
GI prophylaxis
Creat at baseline, no history of renal disease
Void trials
Follow urine output, critical I/Os
Replete electrolytes as needed
No signs/symptoms suspicious for infectious etiology at this time
Observe off antibiotics for now
Follow fever trend, WBC count
CBC stable, no signs of bleeding or coagulopathy.
DVT prophylaxis as assessed based on risk, including mechanical SCDs
Can transfuse if indicated for Hb <7, plt < 10
No prior h/o diabetes or thyroid disease
Hyperglycemia noted, likely undiagnosed DM
Insulin protocol started
HbA1c 6.1
Eventual transition to SC as able
Prognosis overall poor given myoclonus and prolonged down time, will discuss prognosis with family pending TTM completion.
Diagnostic Data
Chest X-Ray: 07/11/24- No acute cardiopulmonary process. Low-lying ET tube. This was already retracted by the time of subsequent CT.
CT Scan: CAP 07/11/24- 1. No significant abnormality identified in the chest, abdomen or pelvis, as described above.
2. 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
3. Possible left thyroid nodule. Consider outpatient workup with dedicated thyroid ultrasound if not previously performed.
There is a tiny nondisplaced fracture of the upper sternal body anteriorly.
HCT 07/11/24- 1. No acute intracranial abnormality noted.
2. No acute fracture or subluxation of the cervical spine.
Echo: 07/11/24- Moderately dilated LV with severely reduced systolic function. LVEF is 15-20% by visual estimation. Global hypokinesis. Normal right ventricular size and function. Limited valvular interrogation. No prior study available for
comparison.
PFT's:
Reports and relevant images were personally reviewed.
Critical Care time 56 mins -- The patient is admitted for acute critical illness for the treatment of vital organ failure and/or prevention of further life-threatening conditions. Total care includes time spent in review of history, physical exam,
medications, hemodynamic/ventilator parameters, laboratory data, imaging and discussion with house staff, pharmacy, respiratory therapy, records analyst, and nursing.
Subjective Dataa
Subjective Data
Date of Service:
Date of Service: July 12, 2024
Chief Complaint: Tub Operator Follow Up
Subjective:
Remains critically ill, on vent
No events ON, increasing myoclonus is evident
TTM at target temp around midnight, difficult to cool
Objective Data
Data Reviewed
Vital Signs / I&O / Oxygen:
Vital Signs
Temp Pulse Resp BP Pulse Ox
91.7 F L 51 15 82/47 98
07/12/24 07:00 07/12/24 06:15 07/12/24 06:15 07/12/24 06:00 07/12/24 06:15
Intake and Output
07/11/24 07/12/24 07/13/24
06:59 06:59 06:59
Intake Total 1122.4 / 1122.4
Output Total 1525.0 / 1525.0
Balance -402.6 / -402.6
SaO2 [A/C] 99
SaO2 98
Physical Exam
General: Other (intubated)
HEENT: Normocephalic, Anicteric and Moist Mucous Membranes
Cardiovascular: S1-S2 and Regular Rhythm
Respiratory: Clear, Non-Labored Respirations and ET Tube
GI: Soft, Non Distended and Non Tender
Neurology: Unresponsive (myoclonic jerks noted)
Skin: Warm and Dry
Labs/Micro/Reports
Laboratory Results
07/11/24 07/11/24 07/11/24
11:59 12:46 22:06
PT 15.0 H
INR 1.14
APTT 31.1
pH 7.24 L 7.29 L
pCO2 45 43
pO2 237 H 200 H
HCO3 19.3 L 20.7 L
O2 Delivery Level
07/12/24
03:51
PT 14.4
INR 1.09
APTT 30.1
pH
pCO2
pO2
HCO3
O2 Delivery Level
[2024-07-12 07:21] LABS: Glucose - Point of Care 95 mg/dl (70-99)
--- NOTE | 2024-07-12 07:30 | PTCARENOTE ---
Full assessment completed. Q4H neuro checks per MD orders. Upon visual assessment...intermittent decorticate posturing noted w/ myoclonic facial twiching noted. Pupils 2/sluggish. Intermittently opens eyes. No corneal reflex...no gag reflex.
Does not follow commands or make any purposeful movements. Unrestrained. S1 S2 regular and distant w/ sinus nick on monitor. Rhythm noted to have BBC/1st degree AVB/prolonged QT and occasional monomorphic PVC's. Weak RP/DP/PT's. Trace
generalized edema. #7.5 ETT 23cm left lip...current vent settings: 16/500/+5/40%....sats 99%. Suctioned orally for blood tinged thin secretions. No secretions noted via ETT. Anterior clear upon auscultation. Lungs diminished throughout w/
scattered coarse rhonchi posteriorly. Abdomen obese. Hypo BS. Right nare [place] -> LIWS. 70cm doreen noted. Temperature sensing youssef draining cloudy yellow urine w/ sediment. Q1H I/O's. Skin pale and cool to touch. Hypothermia suit noted.
Documentation for hypothermia done per protocol. Right radial bethany...flushed and zeroed. Two peripheral INT's redressed. Left femoral TLC w/ IVF's, diprivan, propofol, and fentanyl gtts infusing...see interventions. Lateral rotation initiated.
Will maintain 1:1 nursing care.
[2024-07-12] MEDS: KEPPRA 1000 MG IV (07:37)
[2024-07-12] MEDS: NSS (PRESERVATIVE FREE) 10 ML IV (07:38)
[2024-07-12] MEDS: BUSPAR 30 MG TUBE ×2 (07:38→15:23)
[2024-07-12] MEDS: REFRESH CELLUVISC GEL 1 DROPS OPHTH ×2 (07:38→19:27)
[2024-07-12] MEDS: MIRALAX 17 GRAMS TUBE (07:38)
[2024-07-12] MEDS: PROTONIX IV 40 MG IV (07:38)
--- NOTE | 2024-07-12 08:36 | CON.NEURO ---
Consultation
Order
Date of Consultation: 07/12/24
Requesting Provider: Khalif Doe CRNP
Reason for Consult: Status postcardiac arrest
Neurology Consultation Note.
HPI: This is a 69-year-old man who presented to [facility] on 07/11/2024 with witnessed hospital cardiac arrest at work. According to medical personnel the patient was down for at least 10 minutes without intervention before he
stopped breathing, at which point CPR was initiated. He ultimately received 15 minutes of CPR, though it's unclear if this was entirely performed by EMS or if bystanders initiated it. The patient was subsequently started on hypothermia protocol. He
reportedly has had rhythmic flexor posturing before he was started on Keppra despite being on propofol and fentanyl.
EKG: Normal sinus rhythm with first degree of AV block QTc Int : 516 ms
PDMP:none
Labs: WBCs 12.4�17.4, normal platelets, sodium, creatinine 1.1/1.4, glucose 317, hemoglobin A1c�6.1, AST�181, ALT 170, creatinine kinase 857�1327, troponin 0.083�12.5, free T4�0.77, LDL�31.
Repeat CT head�no acute abnormalities.
TTE-EF 15-20%
PMH:CAD, HFrEF:, HTN, DLP, DM,
PSH: Left close nuclear ORIF, PCI(02/2023)
SH:unknown
FH: Unknown
All:NKDA
ROS: Unable due to encephalopathy
General: Intubated sedated
Cardio: Regular rate and rhythm
Neuro: RR=vent
Mental Status: Eyes open, does not attend to follow requests.
Cranial Nerves: Pupils are 3 mm equally round, nonreactive negative corneals, no blink to threat. Negative gag.
Motor: Flaccid quadriplegia.
Reflexes: Plantars�extensor bilateral
Sensory: Unable to assess
Coordination: Rhythmic flexor posturing
Gait: deferred
Assessment and Plan:
I. Multifactorial encephalopathy (hypoxic, toxic, vascular, metabolic)
II. Clarence-Lozano syndrome
III. Status postcardiac witnessed pulseless cardiac arrest
-Aspiration precautions.
-Avoid cerebral hypoperfusion
-Avoid medications, known to lower seizure threshold.
-Brain MRI wo [place] if consistent with goals of care
-Increase Keppra to 1500 twice daily IV
-Contacted patient's significant other who was unable to take my call currently driving)
-DVT prophylaxis.
I personally reviewed all radiology and labs along with past medical records pertinent to current medical problems. Total time spent in patient care is 60 minutes.
Thank you for allowing us to participate in the care of this patient. We will continue to follow. Please do not hesitate to contact us with any questions or concerns.
Subjective/Objective
Subjective Data
Date of Service: July 12, 2024
Objective Data
Vital Signs
Temp Pulse Resp BP Pulse Ox
33.3 C L 51 15 82/47 96
07/12/24 08:00 07/12/24 06:15 07/12/24 06:15 07/12/24 06:00 07/12/24 08:00
PT 14.4 Sec (11.4-14.6) 07/12/24 03:51
INR 1.09 07/12/24 03:51
APTT 30.1 Sec (23.4-35.0) 07/12/24 03:51
Sodium 139 mmol/L (135-145) 07/12/24 03:51
Sodium 140 mmol/L (135-145) 07/12/24 03:51
Potassium 4.0 mmol/L (3.5-5.1) 07/12/24 03:51
Potassium 4.0 mmol/L (3.5-5.1) 07/12/24 03:51
BUN 34 mg/dl (9-20) H 07/12/24 03:51
BUN 35 mg/dl (9-20) H 07/12/24 03:51
Glucose 113 mg/dl (70-99) H 07/12/24 03:51
Glucose 115 mg/dl (70-99) H 07/12/24 03:51
Calcium 8.3 mg/dl (8.4-10.2) L 07/12/24 03:51
Calcium 8.4 mg/dl (8.4-10.2) 07/12/24 03:51
Phosphorus 3.6 mg/dl (2.5-4.5) 07/12/24 03:51
Sun-E-Bgrwjcmfhnf Pept 2300 pg/ml 07/11/24 16:57
Rti-R-Rdakwvucdhd Pept Cancelled 07/11/24 16:57
LDL Cholesterol, Calc 31 mg/dl 07/12/24 03:51
Ur Buprenorphine Negative (Negative) 07/11/24 12:46
Patient Allergies
No Known Allergies Allergy (Verified 12/01/19 11:09)
Medications
-
Active Medications
Generic Name Dose Route Start Last Admin
Trade Name Freq PRN Reason Stop Dose Admin
Acetaminophen 650 mg 07/11/24 15:53
Acetaminophen 650 Mg Rectal Suppository RECTAL 07/15/24 15:52
Q6HPRN PRN
if cannot be given via tube
Acetaminophen 650 mg 07/12/24 00:00 07/12/24 05:17
Acetaminophen (Oral Solution) 650 Mg/20.3 Ml Cup TUBE 08/09/24 00:00 650 mg
Q6 KRUNAL Administration
Bisacodyl 10 mg 07/11/24 15:02
Bisacodyl 10 Mg Rectal Suppository RECTAL 08/08/24 15:01
[id number] PRN
constipation
Buspirone HCl 30 mg 07/12/24 00:00 07/12/24 07:38
Buspirone 15 Mg Tablet TUBE 08/09/24 00:00 30 mg
Q8 KRUNAL Administration
Carboxymethylcellulose Sodium 1 drops 07/11/24 20:00 07/12/24 07:38
Carboxymethylcellulose Ophth Gel (Celluvisc) Droperette OPHTH 08/08/24 19:59 1 drops
BID KRUNAL Administration
Dextrose 12.5 grams 07/11/24 16:00
Dextrose 50% (0.5 Grams/Ml) 50 Ml Syringe IV 08/08/24 15:59
[id number] PRN
BLOOD GLUCOSE < 70
Enoxaparin Sodium 40 mg 07/11/24 18:00 07/11/24 17:10
Enoxaparin Sodium 40 Mg/0.4 Ml Syringe SC 08/08/24 17:59 40 mg
QPM KRUNAL Administration
Fentanyl Citrate 50 mcg 07/11/24 15:53 07/12/24 06:47
Fentanyl (50 Mcg/Ml) 100 Mcg/2 Ml Ampul IV 07/25/24 15:52 50 mcg
[id number] PRN Administration
see protocol
Protocol
Sodium Chloride 1,000 mls @ 50 mls/hr 07/11/24 15:02 07/11/24 16:58
Nss IV 1,000 mls
.Q20H KRUNAL Administration
Fentanyl Citrate 1,000 mcg in 100 mls @ 0 mls/hr 07/11/24 16:00 07/11/24 19:03
Sublimaze IV 100 mls
PER PROTOCOL KRUNAL Administration
Protocol
Per Protocol
Propofol 1,000,000 mcg in 100 mls @ 0 mls/hr 07/11/24 16:00 07/12/24 08:07
Diprivan IV 100 mls
PER PROTOCOL KRUNAL Administration
Protocol
Per Protocol
Vecuronium Duff 60 mg/ 250 mls @ 0 mls/hr 07/11/24 16:00
Sodium Chloride IV
PER PROTOCOL KRUNAL
Protocol
Per Protocol
Insulin Human Regular 100 units in 100 mls @ 0 mls/hr 07/11/24 16:00 07/11/24 17:05
Novolin R Insulin Infusion IV 100 mls
PER PROTOCOL KRUNAL Administration
Protocol
Per Protocol
Norepinephrine Bitartrate 4 mg in 250 mls @ 0 mls/hr 07/12/24 06:00 07/12/24 06:08
Levophed IV 250 mls
PER PROTOCOL KRUNAL Administration
Protocol
Per Protocol
Levetiracetam 1,000 mg 07/12/24 08:00 07/12/24 07:37
Levetiracetam (100 Mg/Ml) 500 Mg/5 Ml Vial IV 08/09/24 07:59 1,000 mg
Q12 KRUNAL Administration
Midazolam HCl 2 mg 07/12/24 05:52
Midazolam (Preservative Free) 1 Mg/Ml 2 Ml Vial IV 08/09/24 05:51
Q2HPRN PRN
Seizure
Pantoprazole Sodium 40 mg 07/11/24 16:00 07/12/24 07:38
Pantoprazole Sodium 40 Mg/10 Ml Vial IV 08/08/24 15:59 40 mg
DAILY KRUNAL Administration
Polyethylene Glycol 17 grams 07/11/24 15:02
Polyethylene Glycol Powder 17 Grams Packet PO 08/08/24 15:01
DAILYPRN PRN
constipation
Polyethylene Glycol 17 grams 07/12/24 08:00 07/12/24 07:38
Polyethylene Glycol Powder 17 Grams Packet TUBE 08/09/24 07:59 17 grams
DAILY KRUNAL Administration
Senna/Docusate Sodium 1 tablet 07/11/24 15:02
Docusate W/Senna (Lina-Colace) Tablet PO 08/08/24 15:01
BIDPRN PRN
constipation
Sodium Chloride 0 flush 07/11/24 16:00
Sodium Chloride 0.9% (Flush) Syringe IV 08/08/24 15:59
PER PROTOCOL KRUNAL
Sodium Chloride 10 ml 07/11/24 16:00 07/12/24 07:38
Sodium Chloride 0.9% (Preservative Free) 10 Ml Vial IV 08/08/24 15:59 10 ml
DAILY KRUNAL Administration
Vecuronium Duff 10 mg 07/11/24 15:53
Vecuronium Duff (1 Mg/Ml) 10 Mg/10 Ml IV 07/14/24 15:54
Q1HPRN PRN
BSAS >/= 1
Protocol
Home Medications
�Medication �Instructions �Recorded
aspirin 81 mg chewable tablet 81 mg PO DAILY Blood Clot 07/11/24
Prevention/Tx
atorvastatin 80 mg tablet (Lipitor) 80 mg PO QPM High Cholesterol 07/11/24
carvedilol 3.125 mg tablet (Coreg) 3.125 mg PO BID Heart Failure 07/11/24
dapagliflozin propanediol 5 mg 5 mg PO QPM Heart Failure 07/11/24
tablet (Farxiga)
furosemide 40 mg tablet (Lasix) 40 mg PO DAILY Heart Failure 07/11/24
prasugrel HCl 10 mg tablet 10 mg PO DAILY Blood Clot 07/11/24
Prevention/Tx
sacubitril 24 mg-valsartan 26 mg 1 tab PO BID Heart Failure 07/11/24
tablet (Entresto)
spironolactone 25 mg tablet 12.5 mg PO DAILY Heart Failure 07/11/24
Vital Signs and Labs
-
Vital Signs and Labs:
Vital Signs
Temp Pulse Resp BP Pulse Ox
33.9 C L 55 18 96/83 98
07/12/24 17:00 07/12/24 15:00 07/12/24 15:00 07/12/24 08:00 07/12/24 16:00
PT 14.4 Sec (11.4-14.6) 07/12/24 03:51
INR 1.09 07/12/24 03:51
APTT 30.1 Sec (23.4-35.0) 07/12/24 03:51
Sodium 136 mmol/L (135-145) 07/12/24 15:50
Potassium 4.0 mmol/L (3.5-5.1) 07/12/24 15:50
BUN 32 mg/dl (9-20) H 07/12/24 15:50
Glucose 120 mg/dl (70-99) H 07/12/24 15:50
Calcium 8.2 mg/dl (8.4-10.2) L 07/12/24 15:50
Phosphorus 3.7 mg/dl (2.5-4.5) 07/12/24 15:50
Pfu-H-Srjgqjmxlvb Pept 2300 pg/ml 07/11/24 16:57
Wsb-I-Wwowvxvozqn Pept Cancelled 07/11/24 16:57
LDL Cholesterol, Calc 31 mg/dl 07/12/24 03:51
Ur Buprenorphine Negative (Negative) 07/11/24 12:46
Medications
-
Medications:
Generic Name Dose Route Start Last Admin
Trade Name Freq PRN Reason Stop Dose Admin
Acetaminophen 650 mg 07/11/24 15:53
Acetaminophen 650 Mg Rectal Suppository RECTAL 07/15/24 15:52
Q6HPRN PRN
if cannot be given via tube
Acetaminophen 650 mg 07/12/24 00:00 07/12/24 17:15
Acetaminophen (Oral Solution) 650 Mg/20.3 Ml Cup TUBE 08/09/24 00:00 650 mg
Q6 KRUNAL Administration
Bisacodyl 10 mg 07/11/24 15:02
Bisacodyl 10 Mg Rectal Suppository RECTAL 08/08/24 15:01
[id number] PRN
constipation
Buspirone HCl 30 mg 07/12/24 00:00 07/12/24 15:23
Buspirone 15 Mg Tablet TUBE 08/09/24 00:00 30 mg
Q8 KRUNAL Administration
Carboxymethylcellulose Sodium 1 drops 07/11/24 20:00 07/12/24 07:38
Carboxymethylcellulose Ophth Gel (Celluvisc) Droperette OPHTH 08/08/24 19:59 1 drops
BID KRUNAL Administration
Dextrose 12.5 grams 07/11/24 16:00
Dextrose 50% (0.5 Grams/Ml) 50 Ml Syringe IV 08/08/24 15:59
[id number] PRN
BLOOD GLUCOSE < 70
Enoxaparin Sodium 40 mg 07/11/24 18:00 07/12/24 17:14
Enoxaparin Sodium 40 Mg/0.4 Ml Syringe SC 08/08/24 17:59 40 mg
QPM KRUNAL Administration
Fentanyl Citrate 50 mcg 07/11/24 15:53 07/12/24 10:20
Fentanyl (50 Mcg/Ml) 100 Mcg/2 Ml Ampul IV 07/25/24 15:52 50 mcg
[id number] PRN Administration
see protocol
Protocol
Sodium Chloride 1,000 mls @ 50 mls/hr 07/11/24 15:02 07/12/24 11:28
Nss IV 1,000 mls
.Q20H KRUNAL Administration
Fentanyl Citrate 1,000 mcg in 100 mls @ 0 mls/hr 07/11/24 16:00 07/12/24 12:42
Sublimaze IV 100 mls
PER PROTOCOL KRUNAL Administration
Protocol
Per Protocol
Propofol 1,000,000 mcg in 100 mls @ 0 mls/hr 07/11/24 16:00 07/12/24 14:52
Diprivan IV 100 mls
PER PROTOCOL KRUNAL Administration
Protocol
Per Protocol
Vecuronium Duff 60 mg/ 250 mls @ 0 mls/hr 07/11/24 16:00
Sodium Chloride IV
PER PROTOCOL KRUNAL
Protocol
Per Protocol
Insulin Human Regular 100 units in 100 mls @ 0 mls/hr 07/11/24 16:00 07/11/24 17:05
Novolin R Insulin Infusion IV 100 mls
PER PROTOCOL KRUNAL Administration
Protocol
Per Protocol
Norepinephrine Bitartrate 4 mg in 250 mls @ 0 mls/hr 07/12/24 06:00 07/12/24 06:08
Levophed IV 250 mls
PER PROTOCOL KRUNAL Administration
Protocol
Per Protocol
Levetiracetam 1,000 mg 07/12/24 08:00 07/12/24 07:37
Levetiracetam (100 Mg/Ml) 500 Mg/5 Ml Vial IV 08/09/24 07:59 1,000 mg
Q12 KRUNAL Administration
Midazolam HCl 2 mg 07/12/24 05:52
Midazolam (Preservative Free) 1 Mg/Ml 2 Ml Vial IV 08/09/24 05:51
Q2HPRN PRN
Seizure
Pantoprazole Sodium 40 mg 07/11/24 16:00 07/12/24 07:38
Pantoprazole Sodium 40 Mg/10 Ml Vial IV 08/08/24 15:59 40 mg
DAILY KRUNAL Administration
Polyethylene Glycol 17 grams 07/11/24 15:02
Polyethylene Glycol Powder 17 Grams Packet PO 08/08/24 15:01
DAILYPRN PRN
constipation
Polyethylene Glycol 17 grams 07/12/24 08:00 07/12/24 07:38
Polyethylene Glycol Powder 17 Grams Packet TUBE 08/09/24 07:59 17 grams
DAILY KRUNAL Administration
Senna/Docusate Sodium 1 tablet 07/11/24 15:02
Docusate W/Senna (Lina-Colace) Tablet PO 08/08/24 15:01
BIDPRN PRN
constipation
Sodium Chloride 0 flush 07/11/24 16:00
Sodium Chloride 0.9% (Flush) Syringe IV 08/08/24 15:59
PER PROTOCOL KRUNAL
Sodium Chloride 10 ml 07/11/24 16:00 07/12/24 07:38
Sodium Chloride 0.9% (Preservative Free) 10 Ml Vial IV 08/08/24 15:59 10 ml
DAILY KRUNAL Administration
Vecuronium Duff 10 mg 07/11/24 15:53
Vecuronium Duff (1 Mg/Ml) 10 Mg/10 Ml IV 07/14/24 15:54
Q1HPRN PRN
BSAS >/= 1
Protocol
Home Medications
-
Home Medications
aspirin 81 mg chewable tablet 81 mg PO DAILY Blood Clot Prevention/Tx 07/11/24
atorvastatin 80 mg tablet (Lipitor) 80 mg PO QPM High Cholesterol 07/11/24
carvedilol 3.125 mg tablet (Coreg) 3.125 mg PO BID Heart Failure 07/11/24
dapagliflozin propanediol 5 mg tablet (Farxiga) 5 mg PO QPM Heart Failure 07/11/24
furosemide 40 mg tablet (Lasix) 40 mg PO DAILY Heart Failure 07/11/24
prasugrel HCl 10 mg tablet 10 mg PO DAILY Blood Clot Prevention/Tx 07/11/24
sacubitril 24 mg-valsartan 26 mg tablet (Entresto) 1 tab PO BID Heart Failure 07/11/24
spironolactone 25 mg tablet 12.5 mg PO DAILY Heart Failure 07/11/24
[2024-07-12 09:14] LABS: Glucose - Point of Care 97 mg/dl (70-99)
[2024-07-12 09:22] LABS: Glycohemoglobin (HgbA1c) 6.1 % (4.0-5.6)
--- NOTE | 2024-07-12 10:15 | PTCARENOTE ---
Plan of care discussed w/ (neurologist). EEG ordered for today. CT to be ordered also. Per Dr. Villar...increase sedation to help w/ vent dyssynchrony and decorticate posturing. (doorperson) at bedside for conversation and
bedside rounds...agrees w/ . Propofol gtt increased to 40mcg....fentanyl prn provided (see mar)...and vent changes made. Will continue to monitor.
--- NOTE | 2024-07-12 10:45 | PTCARENOTE ---
Spoke to about cervical collar.
[2024-07-12 10:47] LABS: ALT (SGPT) 156 U/L (0-50); AST (SGOT) 196 U/L (17-59); Albumin 3.3 g/dl (3.5-5.0); Alkaline Phosphatase 70 U/L (38-126); Blood Urea Nitrogen 34 mg/dl (9-20); Calcium 8.2 mg/dl (8.4-10.2); Carbon Dioxide 20 mmol/L (22-30); Chloride 110 mmol/L (98-107); Estimated Creatinine Clearance 104 ml/min; Glucose 143 mg/dl (70-99); Lactic Acid 1.8 mmol/L (0.7-2.0); Magnesium 1.7 mg/dl (1.6-2.3); Potassium 4.2 mmol/L (3.5-5.1); Sodium 138 mmol/L (135-145); Total Bilirubin 0.6 mg/dl (0.2-1.3); Total CK 1372 U/L (55-170); Total Protein 5.9 g/dl (6.3-8.2); eGFR > 60.00
[2024-07-12 11:03] LABS: % Basophils 0.1 % (0-2); % Immature Granulocytes 0.4 % (0-0.5); % Lymphocytes 6.4 % (20.5-51.1); % Monocytes 7.1 % (1.7-9.3); Absolute Immature Granulocytes 0.1 10^3/uL (0-0.05); Absolute Lymphocytes 1.1 10^3/uL (1.2-3.4); Absolute Monocytes 1.2 10^3/uL (0.1-0.6); Hematocrit 41.1 % (39.0-52.0); Hemoglobin 13.7 g/dL (13.0-18.0); Mean Corp Hgb Conc. 33.3 g/dL (33.0-37.0); Mean Corpuscular Hgb 29.2 pg (27.0-31.0); Mean Corpuscular Volume 87.6 fL (80.0-94.0); Mean Platelet Volume 10.2 fL (7.4-10.4); Nucleated Red Blood Cells % 0 % (-); Platelet Count 281 10^3/uL (130-400); Red Blood Cell Count 4.69 10^6/uL (4.70-6.10); Red Cell Dist. Width 13.1 % (11.5-14.5); White Blood Cell Count 17.4 10^3/uL (4.8-10.8)
[2024-07-12 11:13] LABS: Glucose - Point of Care 105 mg/dl (70-99)
[2024-07-12 11:17] LABS: B.E. -5.9 mmol/L; HCO3 20.2 mmol/L (21-28); PCO2 41 mmHg (35-48); PO2 182 mmHg (83-108)
[2024-07-12 11:18] LABS: O2 Therapy VENT
--- NOTE | 2024-07-12 11:21 | W.PN.UPDATE ---
Update Note
Progress Note Update
Summary from day of admission: 69-year-old male presents after cardiac arrest. As per discussion with the ER the patient collapsed at his work. CPR was started immediately by coworkers. An AED was placed and he received 2 shocks. He received 1
round of CPR and epinephrine by EMS and ROSC was obtained. Currently intubated.
I saw and evaluated the patient. I reviewed the resident�s note and agree with findings and plan as documented in the resident�s note.
Gen: NAD, well developed/nourished
Neck: C-collar in place
CV: nick, reg rhythm, +S1/S2, no m/r/g.
Resp: CTAB anteriorly, no rales, wheezes, or rhonchi.
Abd: Hypoactive BS, soft, NT, ND
Skin: No rashes.
Neuro: clonic jerks in UEs
Psych: calm/sedated
Admission imaging:
CXR: No acute cardiopulmonary process. Low-lying ET tube. This was already retracted by the time of subsequent CT.
CT Brain/C-spine: No acute intracranial abnormality noted. No acute fracture or subluxation of the cervical spine.
CT C/A/P: No significant abnormality identified in the chest, abdomen or pelvis aside from a tiny nondisplaced fracture of the upper sternal body anteriorly. 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
cm. Possible left thyroid nodule. Consider outpatient workup with dedicated thyroid ultrasound if not previously performed.
Echo: TDS, Definity used.
Moderately dilated LV with severely reduced systolic function.
LVEF is 15-20% by visual estimation. Global hypokinesis.
Normal right ventricular size and function.
Limited valvular interrogation.
No prior study available for comparison.
07/12/24: Lines and tubes as described above. Mild cardiomegaly. New. Ascending aortic dilatation. Stable.
ECG on admission (read by me): SR @ 90, L-axis, LBBB
Cardiac arrest:
-Likely due to arrhythmogenic event due to underlying chronic HFrEF and CAD (h/o stents)
-downtime likely ~18 min
-Trop peaked at 17, now trending down. Elevated trop, etiology to be determined but likely nonischemic myocardial injury due to CPR/shocks.
-UDS NEG
-Refused LifeVest and ICD in the past
-cont post-cardiac arrest cooling/TTM protocol
-cont fentanyl/propofol for sedation
-Currently on SIMV 12/5, 10 breaths/min, FiO2 40%
-cards/cut in worker following
-on levophed for cardiogenic shock
-will likely need LHC
-GDMT: resume Coreg/Farxiga/Entresto/Aldactone once hemodynamically stable
-shock liver and lactic acidosis due to cardiac arrest. Lactic acidosis is resolved, transaminases improving.
Other problems:
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 As we are not a trauma center would start with ortho eval for collar removal. My opinion is that the pt's C-spine is cleared by CT neck but we do need ortho to see and
agree prior to C-collar removal.
Obesity due to excess calories
Essential hypertension: Resume Coreg/Entresto/Aldactone once hemodynamically stable
HLD
Total critical care time spent = 33 min
[2024-07-12] MEDS: NSS 1000 IV (11:28)
--- NOTE | 2024-07-12 12:00 | PTCARENOTE ---
Pupils are 2/nonreactive at present. Decorticate posturing, myoclonic facial twitching and overbreathing the vent continues. EEG completed this am. Pt's and sister at bedside...emotional support provided. Pastoral care offered but declined.
Will request prayer blanket. Hypothermia therapy continues. Mg+ replacement ordered. Will continue to monitor.
--- NOTE | 2024-07-12 12:10 | PTCARENOTE ---
Spoke w/ Janet Skelton from [facility]. Her number is [phone]. A [facility] digital sales representative will be out to review case.
--- NOTE | 2024-07-12 12:10 | W.PN.HOSP.TC ---
Today's Communication/Plan
-
On Levophed/vent, hypothermic protocol
Assessment / Plan
Assessment / Plan
IMPRESSION: 69-year-old male with history of CAD status post stents February 2023, HFrEF EF 25%, who presents with cardiac arrest
PLAN:
Cardiac arrest:
Likely due to arrhythmogenic event due to underlying chronic HFrEF and CAD (h/o stents Feb 2023).
CT chest/abd/pelvis no acute significant abnormality
CT head and c-spine - no acute abnormality
-Admit to ICU, intubated: Vent setting AC 500/16/40/5
-On Levophed for cardiogenic shock
-trend trop, initial 0.083, peak 1.7, trending down
-check echo (prior EF 25%, no ICD - pt declined at the time). New echo with worsened EF 15-20%
-post-cardiac arrest cooling protocol
-Appreciate cards/loan collector
-Myoclonic jerks. EEG, neurology assessment
Fall:
Patient collapsed secondary to above. Potential impact with/fall from 2 to 3 foot ladder. Arrived with C-spine collar
C-spine CT normal
-Ortho consult to assess/discontinue collar
HFrEF:
-GDMT: resume Coreg/Farxiga/Entresto/Aldactone once pt is stable and has enteral access
Incidental findings on CT:
-Possible left thyroid nodule. Consider outpt workup after acute problems addressed
-Mild fusiform aneurysmal dilatation of the ascending thoracic aorta measuring up to 4.2 cm. Vascular assessment after acute problems/outpt
Obesity due to excess calories: Patient intubated, appropriate diet when able
Essential hypertension: Resume Coreg/Entresto/Aldactone once hemodynamically stable
HLD
Code Status: DNR
POA: Madhavi Zamora (common law ) [phone]
Anticipated Discharge: > 48 hours
Subjective/Interval History
-
Date of Service: July 12, 2024
Objective Data
-
Labs:
Laboratory Results
07/12/24 07/12/24 07/12/24
03:51 03:51 03:51
WBC 15.1 H
Hgb 14.0
Hct 42.6
Plt Count 251
PT 14.4
INR 1.09
APTT 30.1
HCO3
Sodium 139 140
Potassium 4.0 4.0
Chloride 109 H
Carbon Dioxide
BUN
Creatinine
Glucose
Calcium
Total Bilirubin
AST
ALT
Alkaline Phosphatase
07/12/24 07/12/24 07/12/24
03:51 03:51 03:51
WBC
Hgb
Hct
Plt Count
PT
INR
APTT
HCO3
Sodium
Potassium
Chloride 110 H
Carbon Dioxide 18 L 19 L
BUN 35 H 34 H
Creatinine 1.0
Glucose
Calcium
Total Bilirubin
AST
ALT
Alkaline Phosphatase
07/12/24 07/12/24 07/12/24
03:51 03:51 03:51
WBC
Hgb
Hct
Plt Count
PT
INR
APTT
HCO3
Sodium
Potassium
Chloride
Carbon Dioxide
BUN
Creatinine 1.0
Glucose 113 H 115 H
Calcium 8.4 8.3 L
Total Bilirubin 0.7
AST
ALT
Alkaline Phosphatase
07/12/24 07/12/24 07/12/24
03:51 03:51 03:51
WBC
Hgb
Hct
Plt Count
PT
INR
APTT
HCO3
Sodium
Potassium
Chloride
Carbon Dioxide
BUN
Creatinine
Glucose
Calcium
Total Bilirubin 0.5
AST 220 H 224 H
ALT 167 H 164 H
Alkaline Phosphatase 70
07/12/24 07/12/24 07/12/24
03:51 06:00 10:07
WBC Cancelled 17.4 H
Hgb Cancelled 13.7
Hct Cancelled 41.1
Plt Count Cancelled 281
PT
INR
APTT
HCO3
Sodium 138
Potassium 4.2
Chloride 110 H
Carbon Dioxide 20 L
BUN 34 H
Creatinine 0.9
Glucose 143 H
Calcium 8.2 L
Total Bilirubin 0.6
AST 196 H
ALT 156 H
Alkaline Phosphatase 71 70
07/12/24
10:58
WBC
Hgb
Hct
Plt Count
PT
INR
APTT
HCO3 20.2 L
Sodium
Potassium
Chloride
Carbon Dioxide
BUN
Creatinine
Glucose
Calcium
Total Bilirubin
AST
ALT
Alkaline Phosphatase
Vital Signs:
Vital Signs
Temp Pulse Resp BP Pulse Ox
92.7 F L 52 15 96/83 98
07/12/24 11:00 07/12/24 11:00 07/12/24 11:00 07/12/24 08:00 07/12/24 11:00
I&O
07/11/24 07/12/24 07/13/24
06:59 06:59 06:59
Intake Total 1122.4 / 1200.9 492.8 / 492.8
Output Total 1525.0 / 1560.0 195 / 195
Balance -402.6 / -359.1 297.8 / 297.8
Review of Systems
-
Unable to obtain full review of systems at this time due to: Acuity and Patient Intubation
Physical Exam
-
Respiratory: Clear to Auscultation; Negative Wheezes, Rales, Rhonchi or Crackles
Cardiac: Regular Rhythm and S1/S2; Negative Murmur or Rub
GI: Soft and Nondistended
Skin: Dry; Negative Warm (Cool) or Rash
Neuro: Sedated and Other (Intermittent myoclonic jerks)
--- NOTE | 2024-07-12 12:32 | PN.DE.MGMTRT ---
Insulin Management
- -
07/12/2024 Diabetes Management Consult
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 PMH CAD s/p stents, CHF. A1C on admission 6.1, glucose on admission 366. cr .9, eGFR >60.
Patient is critically ill, intubated on ventilator, unable to communicate. He has some posturing. Currently having EEG. He is on the cooling protocol.
He was started on the glycemic protocol late yesterday and has remained on the protocol requiring .8 to 3 units of insulin per hour. Glucose originally 217 when started, now to 105 with insulin infusion at 2 units per hour.
Will continue insulin infusion and assess in AM for readiness to transition off of infusion.
Discussed with nurse.
Will follow.
Diabetes History
- -
Pre-Admission Diabetes Regimen
07/11/24 07/11/24 07/11/24
11:59 16:57 22:02
Creatinine 1.1 1.4 H 1.1
07/12/24 07/12/24 07/12/24
03:51 03:51 10:07
Creatinine 1.0 1.0 0.9
Lab Results
Hemoglobin A1c 6.1 % (4.0-5.6) H 07/11/24 11:59
Insulin Pump Settings
IP Diabetes Regimen
07/11/24 07/11/24 07/11/24
11:59 16:57 17:03
Glucose 317 H 217 H
POC Glucose 203 H
07/11/24 07/11/24 07/11/24
18:12 19:09 20:09
Glucose
POC Glucose 139 H 142 H 158 H
07/11/24 07/11/24 07/11/24
21:14 22:02 23:12
Glucose 157 H
POC Glucose 131 H 125 H
07/12/24 07/12/24 07/12/24
01:11 02:07 03:09
Glucose
POC Glucose 136 H 140 H 112 H
07/12/24 07/12/24 07/12/24
03:51 03:51 04:13
Glucose 113 H 115 H
POC Glucose 144 H
07/12/24 07/12/24 07/12/24
05:11 07:10 09:02
Glucose
POC Glucose 112 H 95 97
07/12/24 07/12/24
10:07 11:00
Glucose 143 H
POC Glucose 105 H
Patient Education
[2024-07-12] MEDS: SUBLIMAZE 100 IV (12:42)
[2024-07-12] MEDS: SODIUM BICARBONATE 50 MEQ IV (12:44)
[2024-07-12] MEDS: MAGNESIUM SULFATE 50 IV (12:48)
[2024-07-12 13:08] LABS: Glucose - Point of Care 90 mg/dl (70-99)
--- NOTE | 2024-07-12 13:15 | EEG.RPT ---
Electroencephalogram Report
Recording
Date of EE07/12/24
Type of EEG: Routine
Length of EEG recordin minutes
Done with Video Recording: Yes
Patient Status: Inpatient
Recording Conditions: Other
Hyperventilation Performed: No
Photic Stimulation Performed: Yes
Report
LESS THAN 1 HOUR REPORT
LESS THAN 1 HOUR EEG INTERPRETATION:
Severely abnormal study for age based on bursts of spike and slow-wave delta activity followed by non-rhythmic electrical activity.
CLINICAL CORRELATION:
This study was suggestive of a seizure pattern linked with motor movements and likely linked to significant diffuse cortical injury.
Clinical correlation is advised.
METHODS:
A 21 channel digitized electroencephalogram (EEG) was performed at the bedside in the intensive care unit. The 10/20 international system of electrode placement was used with ECG and lateral/vertical eye movements recorded. The [employer] quantitative
EEG system was utilized.
ELECTROENCEPHALOGRAPHER IMPRESSION(S):
Quality of study
Fair�good due to muscle artifact
Background
Medium amplitude
No anterior-posterior voltage gradient differentiation
Beta maximal background nearly continuously demonstrated
Sleep
Drowsiness present
Hyperventilation
Not performed
Photic Stimulation
Failed to activate the record
ECG
Normal rhythm
Abnormal Activity
Intermittent semi-rhythmic and rhythmic delta (1 to 2 Hz) activity lasting approximately 1 second which was of medium�high amplitude followed by delta activity for 1-2 seconds and then returning to diffuse beta activity.
--- NOTE | 2024-07-12 13:52 | CM ---
CM following re: discharge planning.
Discussed in Rounds, reviewed pt's chart, met with pt and spoke to pt's girlfriend Madhavi and met with pt's sister Tarsha [phone]
Pt is a 69 year old male, admitted with primary dx of Cardiac arrest. Per Rounds meeting, pt with Acute cardiac arrest s/p bystander CPR 07/11/24, remains intubated, continue supportive care.
Per sister Tarsha, pt has been living with girlfriencailin Hendrickson for many years, has supportive brother Deni [phone] and sister Tarsha [phone]. Per sister Tarsha, pt's girlfriend is next of Kin and she and her brother Deni have very good
relationship with pt's girlfriend Madhavi.
Pt's sister went to tears describing her feelings regarding her brother current health situation. Emotional support offered and provided.
D/C plan: uncertain at this time and will depend on pt's progress.
CM will follow with discharge plan updates as hospitalization progresses.
--- NOTE | 2024-07-12 14:00 | CHAP ---
Emotional support and blanket provided. shared stories at bedside. Will follow. Note: Mr. Shelton is not samaritan but his appreciated emotional support.
--- NOTE | 2024-07-12 15:00 | PTCARENOTE ---
CT of head completed per MD orders.
[2024-07-12 15:18] LABS: Glucose - Point of Care 84 mg/dl (70-99)
--- NOTE | 2024-07-12 16:00 | PTCARENOTE ---
Pt reassessed...no major changes in physical assessment. ETT moved to right lip. Remains on P-SIMV...current vent settings: RR 10/PC 12/+5/40%....sats 99%. Pastoral support at bedside to support pt's partner....prayer blanket provided. Labs
sent per orders. Will continue to monitor closely.
[2024-07-12 16:08] LABS: % Basophils 0.3 % (0-2); % Eosinophils 0.1 % (0-6); % Immature Granulocytes 0.4 % (0-0.5); % Lymphocytes 9.8 % (20.5-51.1); % Neutrophils 82.4 % (42.2-75.2); Absolute Immature Granulocytes 0.1 10^3/uL (0-0.05); Absolute Lymphocytes 1.6 10^3/uL (1.2-3.4); Absolute Monocytes 1.1 10^3/uL (0.1-0.6); Absolute Neutrophils 13.1 10^3/uL (1.4-6.5); Hematocrit 40.1 % (39.0-52.0); Hemoglobin 13.4 g/dL (13.0-18.0); Mean Corp Hgb Conc. 33.4 g/dL (33.0-37.0); Mean Corpuscular Hgb 28.8 pg (27.0-31.0); Mean Corpuscular Volume 86.2 fL (80.0-94.0); Mean Platelet Volume 9.9 fL (7.4-10.4); Nucleated Red Blood Cells % 0 % (-); Platelet Count 282 10^3/uL (130-400); Red Blood Cell Count 4.65 10^6/uL (4.70-6.10); White Blood Cell Count 15.9 10^3/uL (4.8-10.8)
[2024-07-12 16:17] LABS: Glucose - Point of Care 96 mg/dl (70-99)
[2024-07-12 16:21] LABS: Lactic Acid 1.3 mmol/L (0.7-2.0)
[2024-07-12 16:23] LABS: ALT (SGPT) 146 U/L (0-50); AST (SGOT) 168 U/L (17-59); Albumin 3.4 g/dl (3.5-5.0); Alkaline Phosphatase 73 U/L (38-126); Blood Urea Nitrogen 32 mg/dl (9-20); Calcium 8.2 mg/dl (8.4-10.2); Carbon Dioxide 21 mmol/L (22-30); Chloride 106 mmol/L (98-107); Estimated Creatinine Clearance 117 ml/min; Glucose 120 mg/dl (70-99); Magnesium 2.5 mg/dl (1.6-2.3); Phosphorus 3.7 mg/dl (2.5-4.5); Sodium 136 mmol/L (135-145); Total Bilirubin 0.8 mg/dl (0.2-1.3); Total Protein 5.9 g/dl (6.3-8.2); eGFR > 60.00
[2024-07-12 16:25] LABS: Total CK 1169 U/L (55-170)
[2024-07-12 17:11] LABS: Glucose - Point of Care 107 mg/dl (70-99)
[2024-07-12] MEDS: LOVENOX 40 MG SC (17:14)
[2024-07-12 18:13] LABS: Glucose - Point of Care 92 mg/dl (70-99)
[2024-07-12] MEDS: NSS 250 IV (19:02)
[2024-07-12 19:19] LABS: Glucose - Point of Care 101 mg/dl (70-99)
[2024-07-12] MEDS: KEPPRA 1500 MG IV (19:26)
--- NOTE | 2024-07-12 19:30 | PTCARENOTE ---
Resumed care of pt this evening. Received pt intubated and sedated. Pt's neuro status appears unchanged from previous assessment. Pt continues to lack corneal and gag reflexes. Pt also continues to be posturing w/ myoclonic jerking movements. All
movements by pt appear to be non purposeful. Pupils do not appear to be reactive to light. Pt is in NSR on tele monitor w/ frequent PVCs, BBB, palpable pedal pulses, and trace GA. Pt tolerating vent settings satting at 97% pulse ox. Pt suctioned for
blood tinged secretions. On auscultation pt lungs sound diminished w/ rhonchi TO. Pt's right nare [place] sump connected to low intermittent suctioning w/ brown/maroon drainage noted. Pt's abdomen is round obese and active BS. Pt youssef in place but is
currently not draining any urine. Skin is C/D/I.
--- NOTE | 2024-07-12 19:33 | W.PN.CD ---
Today's Communication / Plan
-
Post-cardiac arrest care with cooling
Pending rewarming and assessment of mental status, will determine plans for LHC, ICD
Impression / Plan
-
IMPRESSION/PLAN: 69M with coronary artery disease (most recent PCI 02/2023), HFrEF (EF 25%, presumed ischemic cardiomyopathy), LBBB, hypertension, dyslipidemia, and quc-[id number]-cedmomjjf diabetes mellitus presented to the emergency room status
postcardiac arrest.
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
Cardiac arrest
-Cause currently unknown, critically ill - intubated and sedated
-Cooling per [facility]
-Follow telemetry
-He declined ICD in the outpatient setting twice per girlfriend
-LHC this admission once trajectory clarified
-TTE with severe LV dysfunction EF 15%
Abnormal troponin, type unknown, likely nonischemic myocardial injury in the setting of defibrillation shocks and CPR
-peak 17
-EKG with LBBB, unclear chronicity
CAD
-On aspirin and prasugrel
-PCI 02/2023, location unknown, records requested
-Continue medical therapy
HFrEF (EF 25%, now 15%), chronic
Presumed ICMO
-Per girlfriend, LVEF 25%
-GDMT as tolerated (previously on Coreg/Farxiga/Entresto/Aldactone), currently held in setting of borderline hemodynamics, consider restarting once rewarmed as hemodynamic allow
-He does not appear grossly volume overloaded
-Trend daily weight, I's/O, and BMP
Hyperglycemia, HgbA1c pending
HLD, on atorvastatin
LBBB, chronicity unknown
Physical Exam
Vital Signs/Labs
Vital Signs
Temp Pulse Resp BP Pulse Ox
33.9 C L 56 20 85/52 100
07/12/24 19:00 07/12/24 19:00 07/12/24 19:00 07/12/24 16:49 07/12/24 19:00
07/11/24 07/12/24 07/13/24
06:59 06:59 06:59
Actual Weight 111.6 kg
PT 14.4 Sec (11.4-14.6) 07/12/24 03:51
INR 1.09 07/12/24 03:51
APTT 30.1 Sec (23.4-35.0) 07/12/24 03:51
Magnesium 2.5 mg/dl (1.6-2.3) H 07/12/24 15:50
Triglycerides 186 mg/dl (10-149) H 07/12/24 03:51
LDL Cholesterol, Calc 31 mg/dl 07/12/24 03:51
VLDL Cholesterol, Calc 37 mg/dl (0-30) H 07/12/24 03:51
HDL Cholesterol 37 mg/dl 07/12/24 03:51
Free T4 0.77 ng/dl (0.78-2.19) L 07/11/24 11:59
07/11/24 07/11/24
16:57 16:57
Nvr-A-Sdntnygltsl Pept Cancelled 2300
LAB Results
07/11/24 07/11/24 07/11/24
11:59 15:02 16:57
Troponin I 0.083 H* Cancelled 10.200 H* D
07/11/24 07/12/24 07/12/24
22:02 03:02 03:51
Troponin I 17.500 H* D Cancelled 12.500 H* D
07/12/24 07/12/24
10:07 15:50
Troponin I 7.480 H* D 5.290 H* D
Physical Exam
Constitutional: Other (intubated, sedated)
Cardiovascular: Rhythm & rate is regular
Neuro/Psych: Other (non-purposeful movement)
Data Reviewed
-
Date of Service: July 12, 2024
Medical Decision Making: Reviewed Test Results
EKG: Tracing Personally Visualized and interpreted and Report Reviewed by me
Echo: Tracing Personally Visualized and interpreted and Report Reviewed by me
Labs: Labs Reviewed by me
[2024-07-12 21:20] LABS: Glucose - Point of Care 103 mg/dl (70-99)
[2024-07-12 22:15] LABS: % Basophils 0.3 % (0-2); % Eosinophils 0.2 % (0-6); % Immature Granulocytes 0.5 % (0-0.5); % Lymphocytes 9.4 % (20.5-51.1); % Monocytes 6.5 % (1.7-9.3); % Neutrophils 83.1 % (42.2-75.2); Absolute Immature Granulocytes 0.1 10^3/uL (0-0.05); Absolute Lymphocytes 1.3 10^3/uL (1.2-3.4); Absolute Monocytes 0.9 10^3/uL (0.1-0.6); Absolute Neutrophils 11.9 10^3/uL (1.4-6.5); B.E. -2.6 mmol/L; HCO3 23.2 mmol/L (21-28); Hematocrit 38.8 % (39.0-52.0); Mean Corp Hgb Conc. 33.5 g/dL (33.0-37.0); Mean Corpuscular Hgb 29.3 pg (27.0-31.0); Mean Corpuscular Volume 87.4 fL (80.0-94.0); Nucleated Red Blood Cells % 0 % (-); O2 Saturation % 99.9 % (94-98); PCO2 43 mmHg (35-48); PO2 165 mmHg (83-108); Platelet Count 256 10^3/uL (130-400); Red Blood Cell Count 4.44 10^6/uL (4.70-6.10); Red Cell Dist. Width 12.8 % (11.5-14.5); White Blood Cell Count 14.3 10^3/uL (4.8-10.8); pH 7.34 (7.35-7.45)
[2024-07-12 22:27] LABS: Lactic Acid 1.1 mmol/L (0.7-2.0)
[2024-07-12 22:42] LABS: ALT (SGPT) 135 U/L (0-50); AST (SGOT) 145 U/L (17-59); Alkaline Phosphatase 70 U/L (38-126); Blood Urea Nitrogen 32 mg/dl (9-20); Calcium 8.2 mg/dl (8.4-10.2); Carbon Dioxide 23 mmol/L (22-30); Chloride 107 mmol/L (98-107); Estimated Creatinine Clearance 117 ml/min; Glucose 117 mg/dl (70-99); Magnesium 2.3 mg/dl (1.6-2.3); Potassium 3.9 mmol/L (3.5-5.1); Sodium 136 mmol/L (135-145); Total Bilirubin 0.6 mg/dl (0.2-1.3); Total CK 1052 U/L (55-170); Total Protein 5.5 g/dl (6.3-8.2); eGFR > 60.00
[2024-07-12 23:16] LABS: Glucose - Point of Care 132 mg/dl (70-99)
[2024-07-13] VITALS: BP 100/59
[2024-07-13] MEDS: BUSPAR 30 MG TUBE ×2 (00:10→07:54)
[2024-07-13] MEDS: TYLENOL ORAL SOLUTION 650 MG TUBE ×2 (00:10→05:48)
[2024-07-13] MEDS: DIPRIVAN 100 IV ×2 (00:31→05:48)
[2024-07-13] MEDS: SUBLIMAZE 100 IV ×2 (00:57→04:59)
--- NOTE | 2024-07-13 01:00 | PTCARENOTE ---
Rewarming initiated at 0030 per TTM protocol.
[2024-07-13 03:19] LABS: Glucose - Point of Care 107 mg/dl (70-99)
[2024-07-13 04:17] LABS: Hematocrit 37.4 % (39.0-52.0); Hemoglobin 12.6 g/dL (13.0-18.0); Mean Corp Hgb Conc. 33.7 g/dL (33.0-37.0); Mean Corpuscular Hgb 29.6 pg (27.0-31.0); Mean Platelet Volume 10.3 fL (7.4-10.4); Platelet Count 228 10^3/uL (130-400); Red Blood Cell Count 4.25 10^6/uL (4.70-6.10); White Blood Cell Count 13.1 10^3/uL (4.8-10.8)
[2024-07-13 04:21] LABS: INR 1.05
[2024-07-13 04:22] LABS: APTT 34.2 Sec (23.4-35.0)
[2024-07-13 04:38] LABS: ALT (SGPT) 131 U/L (0-50); AST (SGOT) 141 U/L (17-59); Albumin 3.2 g/dl (3.5-5.0); Alkaline Phosphatase 72 U/L (38-126); Blood Urea Nitrogen 31 mg/dl (9-20); Calcium 8.2 mg/dl (8.4-10.2); Carbon Dioxide 23 mmol/L (22-30); Chloride 107 mmol/L (98-107); Estimated Creatinine Clearance 117 ml/min; Glucose 117 mg/dl (70-99); Potassium 3.9 mmol/L (3.5-5.1); Sodium 137 mmol/L (135-145); Total Bilirubin 0.8 mg/dl (0.2-1.3); Total Protein 5.7 g/dl (6.3-8.2); eGFR > 60.00
[2024-07-13 04:47] LABS: NT-proBNP 1660 pg/ml
--- NOTE | 2024-07-13 05:00 | PTCARENOTE ---
Pt's bladder scanned for no urine output over 3 hours. Pt bladder scanned for 425mL. During this time [facility] did not appear to be reading core temp accurately evidenced by core temp decreasing during re warming phase. Youssef cath exchanged for a
new youssef setup. During exchange, viscous bloody penile discharge noted. Pt expelled penile discharge followed by a large amount of urine. Pt re scanned after exchange for 0 mLs. New youssef connected to [facility] and appears to be now accurately
correlating with pt's core temp evidenced by increasing temp w/ rewarming setting.
[2024-07-13 05:16] LABS: Glucose - Point of Care 92 mg/dl (70-99)
[2024-07-13] MEDS: NSS 1000 IV (05:48)
[2024-07-13 05:56] VITALS: BP 106/81
[2024-07-13 06:00] VITALS: BMI 32.8
[2024-07-13] MEDS: VERSED 2 MG IV ×2 (06:27→09:47)
[2024-07-13 07:15] LABS: Glucose - Point of Care 130 mg/dl (70-99)
--- NOTE | 2024-07-13 07:15 | W.PN.INTV ---
Today's Communication / Plan
Recommendations
Rewarming, more seizure activity noted, neuro following
Family at bedside, aware of grim prognosis
Comfort measures are desired, orders are put in place
w/d plan on vent
Care team updated
Assessment
-
Patient is a 69-year-old male with previous history of CAD, heart failure with known EF of 25%, presenting to ER via EMS status post cardiac arrest. 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 He had
received 2 shocks from an AED device prior to EMS arrival. He was continued on resuscitation by EMS, given epinephrine. Was noted to be in PEA arrest, with subsequent ROSC. He was recommended by his outpatient ceramic worker to implant a
defibrillator but had declined. Current mental status appears depressed, not following commands. There was noted myoclonic jerks, patient remained unresponsive. Decision made for hypothermia protocol initiation. He is admitted to ICU for further
management.
Acute cardiac arrest s/p bystander CPR 07/11/24
VF presumed s/p 2 shocks, decompensated to PEA s/p CPR/Epi, with ROSC
Unresponsive s/p intubation and MV
Anoxia suspected given myoclonus/posturing
s/p TTM 07/11/24
Leukocytosis
Metabolic acidosis
Hyperglycemia
Transaminitis, mild
Elevated troponin, mild
Fell from ladder, small sternal fracture--06/26 fall vs CPR
Status epilepticus
Conditions present prior to admission
CAD s/p PCI 02/2023
CHF (HFrEF 25%), declined ICD placement
Appendectomy
Inguinal hernia repair
left clavicle ORIF
left index finger tendon repair
Right index finger amputation
Plan
Current mental status unresponsive status post TTM, initiated 07/11/2024
Had witnessed myoclonus and posturing prior to TTM initiation--this has increased in frequency
Neuro consult for prognosis post TTM
EEG noting seizure activity
Pain/sedation: As needed per protocol, fent/prop
RASS goals: -4
Status post cardiac arrest, presumed VT initially requiring 2 shocks--may have had prolonged downtime
Eventually decompensated to PEA arrest, CPR and epi given with ROSC
Has a history of ischemic cardiomyopathy, EF 25%--noted to have declined ICD placement as outpatient
Hemodynamically stable, pressors for BP support likely due to cooling/sedation
Cardiology consult obtained
Repeat echo demonstrating persistent low EF--15-20% acute on chronic CHF
Intubated and on mechanical ventilation
Vent setting reviewed: AC 500// -- reviewed vent changes at bedside wtih RT given erratic RR and breathing pattern
Change to SIMV PS 10, RR 10--check ABG/adequate, maintain vent settings
Prior history of lung disease: None known
Supplemental O2 as indicated to maintain sats > 89%
CXR/CT reviewed indicating NAD/small sternal fracture from fall vs CPR
NPO for now
Aspiration precautions, HOB > 30 degrees
Speech therapy eval can be considered if extubated
GI prophylaxis
Creat at baseline, no history of renal disease
Void trials
Follow urine output, critical I/Os
Replete electrolytes as needed
No signs/symptoms suspicious for infectious etiology at this time
Observe off antibiotics for now
Follow fever trend, WBC count
CBC stable, no signs of bleeding or coagulopathy.
DVT prophylaxis as assessed based on risk, including mechanical SCDs
Can transfuse if indicated for Hb <7, plt < 10
No prior h/o diabetes or thyroid disease
Hyperglycemia noted, likely undiagnosed DM
Insulin protocol started
HbA1c 6.1
Eventual transition to MD as able
Prognosis overall poor given myoclonus and prolonged down time, family at bedside
They understand his neurologic recovery is poor, want to w/d care
All questions answered, comfort measures in place
Diagnostic Data
Chest X-Ray: 07/11/24- No acute cardiopulmonary process. Low-lying ET tube. This was already retracted by the time of subsequent CT.
CT Scan: CAP 07/11/24- 1. No significant abnormality identified in the chest, abdomen or pelvis, as described above.
2. 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
3. Possible left thyroid nodule. Consider outpatient workup with dedicated thyroid ultrasound if not previously performed.
There is a tiny nondisplaced fracture of the upper sternal body anteriorly.
HCT 07/11/24- 1. No acute intracranial abnormality noted.
2. No acute fracture or subluxation of the cervical spine.
Echo: 07/11/24- Moderately dilated LV with severely reduced systolic function. LVEF is 15-20% by visual estimation. Global hypokinesis. Normal right ventricular size and function. Limited valvular interrogation. No prior study available for
comparison.
PFT's:
Reports and relevant images were personally reviewed.
Critical Care time 76 mins -- The patient is admitted for acute critical illness for the treatment of vital organ failure and/or prevention of further life-threatening conditions. Total care includes time spent in review of history, physical exam,
medications, hemodynamic/ventilator parameters, laboratory data, imaging and discussion with house staff, pharmacy, respiratory therapy, vulcanizer rubber plate, and nursing. Additional time in review with infertility medical assistant plan of care and family discussions.
Subjective Dataa
Subjective Data
Date of Service:
Date of Service: July 13, 2024
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
Subjective:
re-warming, more seizure activity is noted--confirmed on EEG
family at bedside, aware of poor prognosis
remains on sedation, vented
unresponsive
Objective Data
Data Reviewed
Vital Signs / I&O / Oxygen:
Vital Signs
Temp Pulse Resp BP Pulse Ox
95.6 F L 66 25 100/59 99
07/13/24 07:00 07/13/24 04:00 07/13/24 04:00 07/13/24 00:00 07/13/24 04:00
Intake and Output
07/12/24 07/13/24 07/14/24
06:59 06:59 06:59
Intake Total 1122.4 / 1215.9 2866.3 / 2967.5 101.2 / 101.2
Output Total 1525.0 / 1560.0 1012 / 1047 35 / 35
Balance -402.6 / -344.1 1854.3 / 1920.5 66.2 / 66.2
SaO2 [P-SIMV] 99
SaO2 [A/C] 96
SaO2 100
Physical Exam
General: Other (intubated)
HEENT: Normocephalic, Anicteric and Moist Mucous Membranes
Cardiovascular: S1-S2 and Regular Rhythm
Respiratory: Clear, Non-Labored Respirations and ET Tube
GI: Soft, Non Distended and Non Tender
Neurology: Unresponsive (myoclonic jerks noted)
Skin: Warm and Dry
Labs/Micro/Reports
Lab Data
07/13/24 04:03
07/13/24 04:03
Laboratory Results
07/12/24 07/12/24 07/12/24
10:00 10:58 21:58
PT
INR
APTT
pH Cancelled 7.30 L 7.34 L
pCO2 Cancelled 41 43
pO2 Cancelled 182 H 165 H
HCO3 Cancelled 20.2 L 23.2
O2 Delivery Level Cancelled Vent Not Reportable
07/13/24
04:03
PT 14.0
INR 1.05
APTT 34.2
pH
pCO2
pO2
HCO3
O2 Delivery Level
Microbiology
07/11/24 18:10 Blood/Venous Blood Culture - Preliminary
No Growth in 24 hours- Final report to follow
07/11/24 16:57 Blood/Venous Blood Culture - Preliminary
No Growth in 24 hours- Final report to follow
07/11/24 12:46 Urine Urine Culture - Preliminary
NO GROWTH
[2024-07-13 07:50] LABS: Glucose - Point of Care 114 mg/dl (70-99)
[2024-07-13] MEDS: REFRESH CELLUVISC GEL 1 DROPS OPHTH (07:54)
[2024-07-13] MEDS: KEPPRA 1500 MG IV (07:54)
[2024-07-13] MEDS: MIRALAX 17 GRAMS TUBE (07:54)
[2024-07-13] MEDS: NSS (PRESERVATIVE FREE) 10 ML IV (07:55)
[2024-07-13] MEDS: PROTONIX IV 40 MG IV (07:55)
--- NOTE | 2024-07-13 08:07 | W.PN.UPDATE ---
Update Note
Progress Note Update
Summary from day of admission: 69-year-old male presents after cardiac arrest. As per discussion with the ER the patient collapsed at his work. CPR was started immediately by coworkers. An AED was placed and he received 2 shocks. He received 1
round of CPR and epinephrine by EMS and ROSC was obtained.
I saw and evaluated the patient. I reviewed the resident�s note and agree with findings and plan as documented in the resident�s note.
Pt intubated, unresponsive
Gen: NAD, NCAT, well developed/nourished
Neck: C-collar in place
CV: RRR, +S1/S2, no m/r/g.
Resp: remains CTAB anteriorly, no rales, wheezes, or rhonchi.
Abd: +BS, soft, NT, ND
Skin: No rashes.
Neuro: Diffuse myoclonic jerks
Psych: calm/sedated
Admission imaging:
CXR: No acute cardiopulmonary process. Low-lying ET tube. This was already retracted by the time of subsequent CT.
CT Brain/C-spine: No acute intracranial abnormality noted. No acute fracture or subluxation of the cervical spine.
CT C/A/P: No significant abnormality identified in the chest, abdomen or pelvis aside from a tiny nondisplaced fracture of the upper sternal body anteriorly. 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
cm. Possible left thyroid nodule. Consider outpatient workup with dedicated thyroid ultrasound if not previously performed.
Echo: TDS, Definity used.
Moderately dilated LV with severely reduced systolic function.
LVEF is 15-20% by visual estimation. Global hypokinesis.
Normal right ventricular size and function.
Limited valvular interrogation.
No prior study available for comparison.
07/12/24: Lines and tubes as described above. Mild cardiomegaly. New. Ascending aortic dilatation. Stable.
ECG on admission (read by me): SR @ 90, L-axis, LBBB
EEG 07/12/24: This study was suggestive of a seizure pattern linked with motor movements and likely linked to significant diffuse cortical injury.
Cardiac arrest:
-Likely due to arrhythmogenic event due to underlying chronic HFrEF and CAD (h/o stents)
-downtime likely ~18 min
-Trop peaked at 17, now trending down. Elevated trop, etiology to be determined but likely nonischemic myocardial injury due to CPR/shocks.
-UDS NEG
-Refused LifeVest and ICD in the past
-cont post-cardiac arrest cooling/TTM protocol
-cont fentanyl/propofol for sedation
-remains intubated
-cards/sheeter operator following
-on levophed for cardiogenic shock
-GDMT on hold with cardiogenic shock
-shock liver and lactic acidosis due to cardiac arrest. Lactic acidosis is resolved, transaminases improving.
Acute seizure activity:
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
-EEG above
-cont IV Keppra
-neuro following
Family now requesting comfort care with terminal extubation. Confirmed with pt's significant other at bedside. Discussed with Dr. Desai.
Other problems:
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 As we are not a trauma center would start with ortho eval for collar removal. My opinion is that the pt's C-spine is cleared by CT neck but we do need ortho to see and
agree prior to C-collar removal.
Obesity due to excess calories
Essential hypertension: Resume Coreg/Entresto/Aldactone once hemodynamically stable
HLD
Total critical care time spent = 35 min
--- NOTE | 2024-07-13 08:23 | W.PN.INTV ---
Today's Communication / Plan
Recommendations
Comfort measures
Assessment
-
69-year-old male with past medical history of CAD (most recent PCI 02/2023), HFrEF (EF 25%, ischemic cardiomyopathy), hypertension, hyperlipidemia presenting to the ED via EMS status postcardiac arrest.
#Acute cardiac arrest status post CPR
- Patient was noted to collapse at work 07/11/2024. Apparently CPR was started by coworkers after 15 minutes of collapse. He he had received 2 shocks from any AED device prior to EMS arrival. EMS started ACLS resuscitation, epinephrine given,
initial rhythm for EMS was narrow complex PEA. ROSC was obtained after about 15 minutes. Patient was unresponsive upon arrival in the ED. Decision was made to start cooling given patient's unresponsiveness and he was admitted to ICU for further
management. Prior to TTM initiation, flexor posturing and myoclonic jerks were noted, concerning for anoxia.
- Patient was on paralytics and sedatives yesterday for hypothermia management. Patient was on pressure support during cooling. Target temperature was maintained and rewarming was initiated around yesterday midnight. Neurology was following
patient, noted seizure pattern with motor movements and significant diffuse cortical injury on EEG, started on IV levetiracetam. This morning patient remains unresponsive to stimuli and continues to have myoclonic jerks, more rhythmic. No
pupillary reaction. BPs have been stable overnight, patient now off Levophed. Patient continues to be sedated on fentanyl and propofol while intubated. Chest x-ray today shows suboptimal inspiration, cardiomegaly, right lung base atelectasis.
Family understands patient's dismal prognosis and would like to pursue comfort measures per patient's wishes.
#Leukocytosis
-Likely reactive
-No source of infection identified, blood cultures negative, urine culture negative, chest x-ray no evidence of pneumonia
-Downtrending
#Metabolic acidosis
-Likely secondary to status post resuscitation
-Lactic acid downtrending
#Transaminitis
-Downtrending
#Elevated troponin
-Peaked at 17
-Downtrending
-Normal sinus rhythm on monitor
-Cardiology is following
-Cardiac evaluation once stabilized
-Echo yesterday: EF 15 to 20%, global hypokinesis, moderately dilated LV, normal RV
#Cervical spine injury, likely
-Unclear whether patient fell off a ladder at work
-Cervical collar in place
-Imaging negative for cervical spine fractures
Conditions present prior to admission
CAD s/p PCI 02/2023
CHF (HFrEF 25%), declined ICD placement
Appendectomy
Inguinal hernia repair
Hypertension
Hyperlipidemia
Left clavicle ORIF
Left index finger tendon repair
Right index finger amputation
Plan
Intubated, mechanically ventilated, unresponsive to stimuli, RASS score -4 -- comfort measures in place per patient's and family's wishes
Cooling initiated 07/11/2024, rewarming initiated yesterday midnight -- comfort measures in place per patient's and family's wishes
Myoclonic jerking, seizure on EEG -- comfort measures in place per patient's and family's wishes
Hemodynamically stable, off pressors. Repeat echo demonstrating worsening EF 15-20%
Vent settings: SIMV PS 10, RR 10. AB.34/43/165/23. No prior history of lung disease -- comfort measures in place per patient's and family's wishes
CXR 07/13/24: suboptimal inspiration, cardiomegaly, right lung base atelectasis
NPO, resume diet when able. NS 50 cc/hr.
GI prophylaxis protonix
Creat at baseline, no history of renal disease. Monitor urine output and I/Os.
No signs/symptoms suspicious for infectious etiology at this time
CBC stable, no signs of bleeding or coagulopathy.
DVT prophylaxis
HbA1c 6.1
Discussed prognosis with patient's common-law , brother and myizhi-va-mka and answered all questions. Family understands dismal prognosis and would like to pursue comfort measures per patient's wishes.
Subjective Dataa
Subjective Data
Date of Service:
Date of Service: July 13, 2024
Chief Complaint: Back Hand Follow Up
Review of Systems
General: Unobtainable - Pat Unresp and Unobtainable - Sedation
Genitourinary: Hendrix
Objective Data
Data Reviewed
Vital Signs / I&O / Oxygen:
Vital Signs
Temp Pulse Resp BP Pulse Ox
96 F L 87 15 106/81 97
07/13/24 07:59 07/13/24 08:00 07/13/24 08:00 07/13/24 05:56 07/13/24 08:00
Intake and Output
07/12/24 07/13/24 07/14/24
06:59 06:59 06:59
Intake Total 1122.4 / 1215.9 2866.3 / 2967.5 203.5 / 203.5
Output Total 1525.0 / 1560.0 1437 / 1472 80 / 80
Balance -402.6 / -344.1 1429.3 / 1495.5 123.5 / 123.5
SaO2 [P-SIMV] 99
SaO2 [A/C] 96
SaO2 97
Physical Exam
General: Other (intubated, unresponsive to stimuli)
HEENT: Normocephalic, Anicteric and Moist Mucous Membranes
Cardiovascular: S1-S2 and Regular Rhythm
Respiratory: Clear, Non-Labored Respirations and ET Tube
GI: Soft, Non Distended and Non Tender
Neurology: Unresponsive (myoclonic jerks noted, appear more rhythmic today)
Skin: Warm and Dry
Labs/Micro/Reports
Laboratory Results
07/12/24 07/12/24 07/12/24
10:00 10:58 21:58
PT
INR
APTT
pH Cancelled 7.30 L 7.34 L
pCO2 Cancelled 41 43
pO2 Cancelled 182 H 165 H
HCO3 Cancelled 20.2 L 23.2
O2 Delivery Level Cancelled Vent Not Reportable
07/13/24
04:03
PT 14.0
INR 1.05
APTT 34.2
pH
pCO2
pO2
HCO3
O2 Delivery Level
Microbiology
07/11/24 18:10 Blood/Venous Blood Culture - Preliminary
No Growth in 24 hours- Final report to follow
07/11/24 16:57 Blood/Venous Blood Culture - Preliminary
No Growth in 24 hours- Final report to follow
07/11/24 12:46 Urine Urine Culture - Preliminary
NO GROWTH
[2024-07-13 08:51] LABS: HCO3 24.8 mmol/L (21-28); O2 Saturation % 99.4 % (94-98); PCO2 45 mmHg (35-48); PO2 102 mmHg (83-108); pH 7.35 (7.35-7.45)
[2024-07-13 08:52] LABS: Hematocrit 35.7 % (39.0-52.0); Hemoglobin 11.8 g/dL (13.0-18.0); Mean Corp Hgb Conc. 33.1 g/dL (33.0-37.0); Mean Corpuscular Hgb 28.8 pg (27.0-31.0); Mean Corpuscular Volume 87.1 fL (80.0-94.0); Mean Platelet Volume 10.2 fL (7.4-10.4); Platelet Count 202 10^3/uL (130-400); White Blood Cell Count 10.6 10^3/uL (4.8-10.8)
[2024-07-13 09:06] LABS: Lactic Acid 1.4 mmol/L (0.7-2.0)
[2024-07-13 09:28] LABS: Glucose - Point of Care 94 mg/dl (70-99)
[2024-07-13] MEDS: NSS (PRESERVATIVE FREE) 1 ML IV (09:42)
[2024-07-13] MEDS: ATIVAN 2 MG IV ×2 (09:42→10:13)
--- NOTE | 2024-07-13 09:58 | W.PN.HOSP.TC ---
Today's Communication/Plan
-
GOC discussions underway
Assessment / Plan
Assessment / Plan
IMPRESSION: 69-year-old male with history of CAD status post stents February 2023, HFrEF EF 25%, who presents with cardiac arrest
PLAN:
Cardiac arrest:
Likely due to arrhythmogenic event due to underlying chronic HFrEF and CAD (h/o stents Feb 2023).
CT chest/abd/pelvis no acute significant abnormality
CT head and c-spine - no acute abnormality
-On Levophed for cardiogenic shock. New echo with worsened EF 15-20%. On post-cardiac arrest cooling protocol
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
-Myoclonic jerks. EEG with seizure pattern linked with motor movements and likely linked to significant diffuse cortical injury
-POA has decided to pursue comfort measures and potentially discontinue interventions in keeping with patient's wishes.
Fall:
Patient collapsed secondary to above. Potential impact with/fall from 2 to 3 foot ladder. Arrived with C-spine collar
C-spine CT normal
HFrEF:
-GDMT when able, pending [facility] decisions
Incidental findings on CT:
-Possible left thyroid nodule.
-Mild fusiform aneurysmal dilatation of the ascending thoracic aorta measuring up to 4.2 cm.
Obesity due to excess calories:
Essential hypertension:
HLD
Code Status: DNR
POA: Madhavi Zamora (common law ) [phone]
Anticipated Discharge: Within 24 hours
Subjective/Interval History
-
Date of Service: July 13, 2024
Objective Data
-
Labs:
Laboratory Results
07/12/24 07/13/24 07/13/24
21:58 04:03 08:37
WBC 14.3 H 13.1 H 10.6
Hgb 13.0 12.6 L 11.8 L
Hct 38.8 L 37.4 L 35.7 L
Plt Count 256 228 202
PT 14.0
INR 1.05
APTT 34.2
HCO3 23.2 24.8
Sodium 136 137 Pending
Potassium 3.9 3.9 Pending
Chloride 107 107 Pending
Carbon Dioxide 23 23 Pending
BUN 32 H 31 H Pending
Creatinine 0.8 0.8 Pending
Glucose 117 H 117 H Pending
Calcium 8.2 L 8.2 L Pending
Total Bilirubin 0.6 0.8 Pending
AST 145 H 141 H Pending
ALT 135 H 131 H Pending
Alkaline Phosphatase 70 72 Pending
07/13/24 07/13/24 07/13/24
12:00 16:00 20:00
WBC Pending Pending Pending
Hgb Pending Pending Pending
Hct Pending Pending Pending
Plt Count Pending Pending Pending
PT
INR
APTT
HCO3
Sodium Pending Pending Pending
Potassium Pending Pending Pending
Chloride Pending Pending Pending
Carbon Dioxide Pending Pending Pending
BUN Pending Pending Pending
Creatinine Pending Pending Pending
Glucose Pending Pending Pending
Calcium Pending Pending Pending
Total Bilirubin Pending Pending Pending
AST Pending Pending Pending
ALT Pending Pending Pending
Alkaline Phosphatase Pending Pending Pending
07/13/24
22:00
WBC
Hgb
Hct
Plt Count
PT
INR
APTT
HCO3 Pending
Sodium
Potassium
Chloride
Carbon Dioxide
BUN
Creatinine
Glucose
Calcium
Total Bilirubin
AST
ALT
Alkaline Phosphatase
Vital Signs:
Vital Signs
Temp Pulse Resp BP Pulse Ox
96.5 F L 87 15 106/81 97
07/13/24 09:00 07/13/24 08:00 07/13/24 08:00 07/13/24 05:56 07/13/24 08:00
I&O
07/12/24 07/13/24 07/14/24
06:59 06:59 06:59
Intake Total 1122.4 / 1215.9 2866.3 / 2967.5 282.5 / 282.5
Output Total 1525.0 / 1560.0 1437 / 1472 120 / 120
Balance -402.6 / -344.1 1429.3 / 1495.5 162.5 / 162.5
Review of Systems
-
Unable to obtain full review of systems at this time due to: Acuity and Patient Intubation
Physical Exam
-
General: Other (sedated, intubated)
Respiratory: Clear to Auscultation
Cardiac: Regular Rhythm and S1/S2
GI: Soft and Nondistended
Skin: Dry; Negative Warm (cool) or Rash
Neuro: Sedated and Other (frequent myoclonic jerks)
--- NOTE | 2024-07-13 10:01 | PTCARENOTE ---
Pt's , Madhavi, has living will that states pt refuses organ donation. GOL notified.
--- NOTE | 2024-07-13 10:07 | PTCARENOTE ---
Continuous seizure activity noted. Meds given per order.
[2024-07-13] MEDS: SUBLIMAZE 25 MCG IV ×2 (10:29→10:53)
--- NOTE | 2024-07-13 10:29 | W.PN.CD ---
Today's Communication / Plan
-
-
Family may withdraw care
Otherwise continue supportive care
Impression / Plan
-
IMPRESSION/PLAN: 69M with coronary artery disease (most recent PCI 02/2023), HFrEF (EF 25%, presumed ischemic cardiomyopathy), LBBB, hypertension, dyslipidemia, and dai-snldepg-rthhmcugl diabetes mellitus presented to the emergency room status
postcardiac arrest.
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
Neurologic
- EEG abnormal.
- Suspected severe hypoxic brain injury
Primary VF arrest
- Shock x2 by AED, then epi to get ROSC
- Rewarming from targeted temperature management
Abnormal troponin, peak trop 17
- likely nonischemic myocardial injury in the setting of defibrillation shocks and CPR cannot exclude a type II MO but that seems less likely
LBBB of uncertain chronicity
CAD
- On aspirin and prasugrel
- PCI 02/2023, location unknown, records requested
- Continue medical therapy
HFrEF (EF 25%, now 15%), chronic from a presumed Ischemic Cardiomyopathy
-Per girlfriend, LVEF 25%
-GDMT as tolerated (previously on Coreg/Farxiga/Entresto/Aldactone), currently held in setting of borderline hemodynamics, consider restarting once rewarmed as hemodynamic allow
Hyperglycemia, HgbA1c pending
HLD, on atorvastatin
LBBB, chronicity unknown
Physical Exam
Vital Signs/Labs
Vital Signs
Temp Pulse Resp BP Pulse Ox
96.5 F L 87 15 106/81 97
07/13/24 09:00 07/13/24 08:00 07/13/24 08:00 07/13/24 05:56 07/13/24 08:00
07/12/24 07/13/24 07/14/24
06:59 06:59 06:59
Actual Weight 111.6 kg 112.7 kg
PT 14.0 Sec (11.4-14.6) 07/13/24 04:03
INR 1.05 07/13/24 04:03
APTT 34.2 Sec (23.4-35.0) 07/13/24 04:03
Magnesium 2.3 mg/dl (1.6-2.3) 07/12/24 21:58
Triglycerides 186 mg/dl (10-149) H 07/12/24 03:51
LDL Cholesterol, Calc 31 mg/dl 07/12/24 03:51
VLDL Cholesterol, Calc 37 mg/dl (0-30) H 07/12/24 03:51
HDL Cholesterol 37 mg/dl 07/12/24 03:51
Free T4 0.77 ng/dl (0.78-2.19) L 07/11/24 11:59
07/11/24 07/11/24 07/13/24
16:57 16:57 04:03
Zlm-M-Scukmfsblmq Pept Cancelled 2300 1660
LAB Results
07/11/24 07/11/24 07/11/24
11:59 15:02 16:57
Troponin I 0.083 H* Cancelled 10.200 H* D
07/11/24 07/12/24 07/12/24
22:02 03:02 03:51
Troponin I 17.500 H* D Cancelled 12.500 H* D
07/12/24 07/12/24 07/12/24
10:07 15:50 21:58
Troponin I 7.480 H* D 5.290 H* D 4.020 H*
Physical Exam
Constitutional: No acute distress
Cardiovascular: Rhythm & rate is regular and Pedal edema is absent
Respiratory: Respiratory effort normal and Lungs clear to auscul.
GI: Soft
Data Reviewed
-
Date of Service: July 13, 2024
[2024-07-13 10:43] LABS: ALT (SGPT) 117 U/L (0-50); AST (SGOT) 127 U/L (17-59); Alkaline Phosphatase 68 U/L (38-126); Blood Urea Nitrogen 29 mg/dl (9-20); Calcium 8.1 mg/dl (8.4-10.2); Carbon Dioxide 23 mmol/L (22-30); Chloride 106 mmol/L (98-107); Estimated Creatinine Clearance 105 ml/min; Glucose 121 mg/dl (70-99); Magnesium 2.1 mg/dl (1.6-2.3); Phosphorus 3.9 mg/dl (2.5-4.5); Potassium 3.9 mmol/L (3.5-5.1); Sodium 137 mmol/L (135-145); Total Bilirubin 0.7 mg/dl (0.2-1.3); Total Protein 5.4 g/dl (6.3-8.2); eGFR > 60.00
--- NOTE | 2024-07-13 11:24 | W.PN.DEATH ---
Pronouncement of
-
Called to see patient to pronounce.
No spontaneous heart tones or respirations noted.
Patient not responsive to verbal stimuli.
Patient is pronounced .
Time of : 11:12
Date of : 07/13/24
Cause of : anoxic brain injury due to cardiac arrest
Family Notified: Yes (significant other in person)
--- NOTE | 2024-07-13 13:09 | PTCARENOTE ---
Extubated at 1050. Passed at 1112 with family at bedside.
--- NOTE | 2024-07-13 15:06 | W.DCSUMMARY ---
Discharge Summary
Discharge Data
Date of Admission: 07/11/24
Date of Discharge: 07/13/24
-
Pending Results: No
Hospital Course
Discharging Physician : Tanesha Fisher MD; Amanuel Garcia MD.
Disposition :
Principal Discharge diagnosis : Acute cardiac arrest (status post CPR), anoxic brain injury, metabolic acidosis, leukocytosis, transaminitis
Chronic Discharge diagnosis : Coronary artery disease PCI Feb 2023), heart failure with reduced ejection fraction, hypertension, hyperlipidemia
Hospital Course :
69-year-old male presents after cardiac arrest after he collapsed at his work. CPR was started immediately by coworkers. An AED was placed and he received 2 shocks. He received CPR and epinephrine by EMS and ROSC was obtained. On arrival, he was
intubated, unresponsive with c-spine collar in place. Hypothermic protocol was initiated and patient was admitted to ICU. He was maintained on paralytics, sedatives and pressure support while intubated and through cooling protocol. Echo showed
worsened systolic function. In accordance with targeted temperature management protocol rewarming was initiated at 00:30 on 07/12 per neurology assessment on 07/12, myoclonic jerks were noted, seizure pattern and diffuse cortical injury seen on
EEG. Patient's family was made aware of poor prognosis for recovery and chose to pursue comfort measures in keeping with patient's wishes. Comfort measures were initiated. At 10:50 AM, patient was extubated.
At 11:12 AM on 07/13/2024, patient with family at bedside.
Important imaging findings :
CXR 07/11: No acute cardiopulmonary process. Low-lying ET tube. This was already retracted by the time of subsequent CT.
CT Brain/C-spine 07/11: No acute intracranial abnormality noted. No acute fracture or subluxation of the cervical spine.
CT Chest/abd/pel 07/11: No significant abnormality identified in the chest, abdomen or pelvis aside from a tiny nondisplaced fracture of the upper sternal body anteriorly. Mild fusiform aneurysmal dilatation of the ascending thoracic aorta measuring
up to 4.2 cm. Possible left thyroid nodule. Consider outpatient workup with dedicated thyroid ultrasound if not previously performed.
CXR 07/11: Nasogastric tube with tip over the superior aspect of the left upper quadrant, within the stomach
Echo 07/11:
TDS, Definity used.
Moderately dilated LV with severely reduced systolic function.
LVEF is 15-20% by visual estimation. Global hypokinesis.
Normal right ventricular size and function.
Limited valvular interrogation.
No prior study available for comparison.
CXR 07/13: Suboptimal inspiration with subsegmental atelectasis at the right lung base. Mild cardiomegaly without associated pulmonary edema
ECG on admission 07/11: Sinus rhythm with frequent premature ventricular complexes. Left bundle branch block.
EEG 07/12: This study was suggestive of a seizure pattern linked with motor movements and likely linked to significant diffuse cortical injury.
Discharge Plan
-
Patient Disposition:
Date/Time
Date/Time: 07/13/24 11:12
Discharge Date and Time
Discharge Date/Time: 07/13/24 11:12
Print Language: SWEDISH
== END 2024-07-13 11:12 | disposition expired | DRG 296 ==
LOC: ICU 14:43
PROVIDERS: Student in an Organized Health Care Education/Training Program; ADMITTING PHYSICIAN Internal Medicine; CONSULT PHYSICIAN Internal Medicine; CONSULT PHYSICIAN Internal Medicine Cardiovascular Disease; CONSULT PHYSICIAN Psychiatry & Neurology Neurology; EMERGENCY PHYSICIAN Emergency Medicine
PROC: 5A1945Z Respiratory Ventilation, 24-96 Consecutive Hours (ICD-10-PCS; 2024-07-11)
DX: I46.9 Cardiac arrest, cause unspecified (principal); G93.41 Metabolic encephalopathy; E87.20 Acidosis, unspecified; S22.20XA Unspecified fracture of sternum, initial encounter for closed fracture; I5A Non-ischemic myocardial injury (non-traumatic); I50.22 Chronic systolic (congestive) heart failure; G93.1 Anoxic brain damage, not elsewhere classified; J98.11 Atelectasis; F17.290 Nicotine dependence, other tobacco product, uncomplicated; Z66 Do not resuscitate; Z79.82 Long term (current) use of aspirin; I25.10 Atherosclerotic heart disease of native coronary artery without angina pectoris; I11.0 Hypertensive heart disease with heart failure; E66.09 Other obesity due to excess calories; Z68.32 Body mass index [BMI] 32.0-32.9, adult; E78.00 Pure hypercholesterolemia, unspecified; Z51.5 Encounter for palliative care; W17.89XA Other fall from one level to another, initial encounter; D72.829 Elevated white blood cell count, unspecified; E11.65 Type 2 diabetes mellitus with hyperglycemia; I25.5 Ischemic cardiomyopathy; I44.7 Left bundle-branch block, unspecified; I71.21 Aneurysm of the ascending aorta, without rupture; K40.90 Unilateral inguinal hernia, without obstruction or gangrene, not specified as recurrent; R56.9 Unspecified convulsions; Z79.899 Other long term (current) drug therapy; R57.0 Cardiogenic shock
CPT/HCPCS: 31500; 36556; 51702; 70450; 71045; 71260; 72125; 74177; 80053; 80061; 80306; 81003; 81015; 82010; 82077; 82550; 82553; 82805; 82962; 83036; 83605; 83735; 83880; 84100; 84134; 84439; 84443; 84478; 84484; 85025; 85027; 85610; 85730; 86850; 86900; 86901; 87040; 87086; 93005; 93306; 94002; 94003; 95816; 96361; 96374; 99291; Q9950; Q9967